=== PATIENT | male | born 1985 | race Two or more races ===

== ENCOUNTER 2017-05-14 13:18 | Emergency (ER) | payer MEDICAID ==
[~2017-05-14] VITALS: Ht 177.8 cm; Wt 57.2 kg
[2017-05-14 14:01] LABS: Urine RBC None Seen /hpf (0 - 3)
[2017-05-14 14:21] LABS: Basophils # (auto) 0 uL; Basophils % (auto) 0.8 % (0.0-2.0); CONDITION Y; DEFINITIVE SEE PRINTOUT; Eosinophils # (auto) 0.1 uL; Eosinophils % (auto) 1.8 % (0.0-7.0); Hemoglobin 16.8 g/dL (13.5-17.5); Lymphocytes # (auto) 1.5 uL; Lymphocytes % (auto) 37.5 % (10.0-50.0); Mean Corpuscular Hemoglobin 35.7 pg (28.0-32.0); Mean Corpuscular Hgb Conc. 34.2 g/dL (32.0-36.0); Mean Corpuscular Volume 104.3 fL (80.0-100.0); Mean Platelet Volume 10.4 fL (7.4-10.4); Monocytes # (auto) 0.3 uL; Monocytes % (auto) 6.8 % (0.0-12.0); Neutrophils # (auto) 2.1 uL; Neutrophils % (auto) 53.1 % (37.0-80.0); Platelet Count (auto) 210 10^3/uL (140-450); Red Cell Distribution Width 13.3 % (11.6-16.0); White Blood Cell 3.9 10^3/uL (4.4-10.8)
[2017-05-14 14:23] LABS: Albumin 4.4 g/dL (3.4-5.0); BUN/Creatinine Ratio 13.3; Calcium 9.3 mg/dL (8.5-10.1); Potassium 4.5 mmol/L (3.5-5.1)
[2017-05-14 14:26] LABS: Bilirubin, Total 0.7 mg/dL (0.2-1.0); Total Protein 7.8 g/dL (6.4-8.2)
[2017-05-14 14:27] LABS: Urine Bilirubin Negative (Negative); Urine Blood Negative /uL (Negative); Urine Color Yellow (Yellow); Urine Glucose Normal (Normal); Urine Ketone Negative (Negative); Urine Nitrite Negative (Negative); Urine Squamous Epithelial Cell FEW /hpf (<5); Urine Urobilinogen Normal (Negative); Urine pH 7.5 (5.0-8.0)
[2017-05-14] MEDS ORDERED: SODIUM CHLORIDE 0.9% 1,000 ML IV ONE (14:30)
[2017-05-14] MEDS ORDERED: KETOROLAC TROMETH 30 MG/ML 1ML VIAL IV ONE (14:30)
[2017-05-14 16:05] VITALS: BP 99/61
== END 2017-05-14 16:08 | disposition home or self-care (01) ==
LOC: ER 13:18
DX: B34.9 Viral infection, unspecified (principal)
CPT/HCPCS: 36415; 80053; 80307; 81001; 83735; 85025; 96361; 96374; 99284; J1885; J7030

== ENCOUNTER 2017-06-17 13:27 | Emergency (ER) | payer MEDICAID ==
[2017-06-17 14:45] VITALS: BP 122/71
[2017-06-17] MEDS ORDERED: KETOROLAC TROMETH 60MG/2ML VIAL IM ONE (15:30)
[2017-06-17] MEDS ORDERED: HYDROcodone-ACET 10/325MG TAB PO ONE (15:30)
== END 2017-06-17 16:01 | disposition home or self-care (01) ==
LOC: ER 13:27
DX: M54.16 Radiculopathy, lumbar region (principal); G89.29 Other chronic pain; M54.5 Low back pain
CPT/HCPCS: 72131; 96372; 99284; J1885

== ENCOUNTER 2017-06-29 11:56 | Inpatient (IN) | payer MEDICAID ==
[~2017-06-29] VITALS: Ht 180.3 cm; Wt 58.2 kg
[2017-06-29] MEDS ORDERED: SODIUM CHLORIDE 0.9% 1,000 ML IV ONE (13:15)
[2017-06-29] MEDS ORDERED: ONDANSETRON HCL 4 MG/2 ML VIAL IV ONE (13:15)
[2017-06-29] MEDS ORDERED: HYDROmorphone HCL 2 MG/ML VL IV ONE (13:15)
[2017-06-29 13:34] LABS: Eosinophils # (auto) 0.1 uL; Hemoglobin 15.5 g/dL (13.5-17.5); Neutrophils # (auto) 1.8 uL; White Blood Cell 3.9 10^3/uL (4.4-10.8)
[2017-06-29 13:36] LABS: Basophils # (auto) 0.1 uL; Basophils % (auto) 1.4 % (0.0-2.0); Hematocrit 44.9 % (41.0-53.0); Lymphocytes # (auto) 1.6 uL; Mean Corpuscular Hemoglobin 36.2 pg (28.0-32.0); Mean Corpuscular Hgb Conc. 34.4 g/dL (32.0-36.0); Mean Corpuscular Volume 105.3 fL (80.0-100.0); Mean Platelet Volume 9.6 fL (6.9-10.8); Monocytes # (auto) 0.4 uL; Monocytes % (auto) 9.8 % (0.0-12.0); Neutrophils % (auto) 46.8 % (37.0-80.0); Nucleated Red Blood Cells % 0.1 %; Platelet Count (auto) 135 10^3/uL (140-450); Red Cell Distribution Width 12.8 % (11.8-14.3)
[2017-06-29 14:01] LABS: Albumin 4.3 g/dL (3.4-5.0); BUN/Creatinine Ratio 18.2; Bilirubin, Total 0.6 mg/dL (0.2-1.0); Calcium 8.9 mg/dL (8.5-10.1); Potassium 3.8 mmol/L (3.5-5.1); Total Protein 7.5 g/dL (6.4-8.2)
[2017-06-29] MEDS ORDERED: GASTROGRAFIN 30 ML SOL ONE (14:30)
[2017-06-29] MEDS ORDERED: cefTRIAXone 1GM/50ML D5W 50 ML IV ONE ×2 (14:45→22:06)
[2017-06-29] MEDS ORDERED: IOHEXOL 300 MG/ML 100ML BOTTLE IJ ONE (15:38)
[2017-06-29 16:43] LABS: Urine RBC None Seen /hpf (0 - 3)
[2017-06-29 17:00] LABS: Urine Bilirubin Negative (Negative); Urine Blood Negative /uL (Negative); Urine Color Yellow (Yellow); Urine Glucose Normal (Normal); Urine Ketone Negative (Negative); Urine Nitrite Negative (Negative); Urine Squamous Epithelial Cell FEW /hpf (<5); Urine Urobilinogen Normal (Negative)
[2017-06-29] MEDS ORDERED: KETOROLAC TROMETH 30 MG/ML 1ML VIAL IV ONE (17:15)
[2017-06-29] MEDS: SODIUM CHLORIDE 0.9% 1,000 ML IV SCH (21:08)
[2017-06-29] MEDS ORDERED: TEMAZEPAM 15 MG CAP PO PRN (21:15)
[2017-06-29] MEDS ORDERED: PANTOPRAZOLE 40 MG/10 ML VIAL IV ONE (21:15)
[2017-06-29] MEDS ORDERED: ACETAMINOPHEN 325 MG TAB PO PRN (21:15)
[2017-06-29] MEDS: MORPHINE SULF INJ 2 MG/ML SYRINGE 1ML IV PRN (22:22)
[2017-06-29 23:12] VITALS: BP 123/77
[2017-06-29 23:16] VITALS: BP 123/77
[2017-06-30] MEDS: MORPHINE SULF INJ 2 MG/ML SYRINGE 1ML IV PRN ×3 (02:21→12:43)
[2017-06-30 05:51] LABS: Basophils # (auto) 0 uL; Basophils % (auto) 0.6 % (0.0-2.0); Eosinophils # (auto) 0.1 uL; Eosinophils % (auto) 2.2 % (0.0-7.0); Hematocrit 39.9 % (41.0-53.0); Lymphocytes # (auto) 1.8 uL; Lymphocytes % (auto) 35.7 % (10.0-50.0); Mean Corpuscular Hemoglobin 36.6 pg (28.0-32.0); Mean Corpuscular Hgb Conc. 35.1 g/dL (32.0-36.0); Mean Corpuscular Volume 104.2 fL (80.0-100.0); Mean Platelet Volume 10.2 fL (6.9-10.8); Monocytes # (auto) 0.4 uL; Monocytes % (auto) 7.4 % (0.0-12.0); Neutrophils # (auto) 2.7 uL; Neutrophils % (auto) 54.1 % (37.0-80.0); Nucleated Red Blood Cells % 0.1 %; Platelet Count (auto) 117 10^3/uL (140-450); Red Cell Distribution Width 12.7 % (11.8-14.3)
[2017-06-30 06:00] VITALS: BP 106/76
[2017-06-30 06:13] LABS: Albumin 3.6 g/dL (3.4-5.0); BUN/Creatinine Ratio 13.9; Bilirubin, Total 1.1 mg/dL (0.2-1.0); Calcium 8.1 mg/dL (8.5-10.1); Potassium 3.7 mmol/L (3.5-5.1); Total Protein 6.3 g/dL (6.4-8.2)
[2017-06-30] MEDS: SODIUM CHLORIDE 0.9% 1,000 ML IV SCH ×2 (08:23→17:08)
[2017-06-30] MEDS: ONDANSETRON HCL 4 MG/2 ML VIAL IV PRN ×2 (08:24→12:43)
[2017-06-30] MEDS ORDERED: HYDR-4663 PO (08:33)
[2017-06-30] MEDS ORDERED: MELO-86 PO (08:33)
[2017-06-30] MEDS ORDERED: DARU1TAB PO (08:33)
[2017-06-30] MEDS ORDERED: EMTR1TAB6 PO (08:33)
[2017-06-30 09:00] VITALS: BP 105/63
[2017-06-30] MEDS ORDERED: cefTRIAXone 1GM/50ML D5W 50 ML IV SCH (09:00)
[2017-06-30] MEDS ORDERED: PANTOPRAZOLE 40 MG/10 ML VIAL IV SCH (10:00)
[2017-06-30] MEDS ORDERED: PREZCOBIX PO SCH (10:00)
[2017-06-30] MEDS ORDERED: DESCOVY PO SCH (10:00)
[2017-06-30] MEDS ORDERED: TENOFOVIR ALAFENAMIDE PO SCH (10:00)
[2017-06-30] MEDS ORDERED: EMTRICITABINE PO SCH (10:00)
[2017-06-30] MEDS: HYDROcodone-ACET 5/325MG TAB PO PRN ×2 (10:36→14:56)
[2017-06-30 13:00] VITALS: BP 120/69
[2017-06-30 15:36] VITALS: BP 120/69
[2017-06-30 17:00] VITALS: BP 115/68
== END 2017-06-30 18:30 | disposition home or self-care (01) | DRG 282 ==
LOC: ER 11:56 → OVERFLOW 11:57 → WEST WING 22:50
PROVIDERS: ADMIT Nurse Practitioner; ATTEND Nurse Practitioner
DX: K85.90 Acute pancreatitis without necrosis or infection, unspecified (principal); F12.90 Cannabis use, unspecified, uncomplicated; G89.29 Other chronic pain; M54.9 Dorsalgia, unspecified
CPT/HCPCS: 36415; 74176; 74177; 80053; 81001; 82150; 83690; 85025; 96361; 96365; 96375; 99291; C9113; J0696; J1885; J2405

== ENCOUNTER 2017-07-04 10:00 | Inpatient (IN) | payer MEDICAID ==
[~2017-07-04] VITALS: Ht 180.3 cm; Wt 76.6 kg
[~2017-07-04 10:00] MED LIST: DARU1TAB PO; EMTR1TAB6 PO; HYDR-4663 PO; MELO-86 PO
[2017-07-04] MEDS ORDERED: SODIUM CHLORIDE 0.9% 1,000 ML IVB ONE (10:25)
[2017-07-04] MEDS ORDERED: ONDANSETRON HCL 4 MG/2 ML VIAL IV ONE ×2 (10:30→13:00)
[2017-07-04] MEDS ORDERED: HYDROmorphone HCL 2 MG/ML VL IV ONE ×2 (10:30→11:30)
[2017-07-04 11:20] LABS: Albumin 4.5 g/dL (3.4-5.0); BUN/Creatinine Ratio 17.2; Bilirubin, Total 0.6 mg/dL (0.2-1.0); Calcium 9.4 mg/dL (8.5-10.1); Potassium 3.9 mmol/L (3.5-5.1); Total Protein 7.9 g/dL (6.4-8.2)
[2017-07-04 11:26] LABS: Basophils # (auto) 0 uL; Basophils % (auto) 1.5 % (0.0-2.0); Eosinophils # (auto) 0.1 uL; Eosinophils % (auto) 3.6 % (0.0-7.0); Hematocrit 46.5 % (41.0-53.0); Hemoglobin 16.2 g/dL (13.5-17.5); Lymphocytes # (auto) 1.1 uL; Lymphocytes % (auto) 41.8 % (10.0-50.0); Mean Corpuscular Hemoglobin 36.3 pg (28.0-32.0); Mean Corpuscular Hgb Conc. 34.9 g/dL (32.0-36.0); Mean Platelet Volume 10.6 fL (6.9-10.8); Monocytes # (auto) 0.3 uL; Monocytes % (auto) 11.6 % (0.0-12.0); Neutrophils # (auto) 1.1 uL; Neutrophils % (auto) 41.5 % (37.0-80.0); Nucleated Red Blood Cells % 0.2 %; Platelet Count (auto) 144 10^3/uL (140-450); Red Cell Distribution Width 12.1 % (11.8-14.3); White Blood Cell 2.5 10^3/uL (4.4-10.8)
[2017-07-04] MEDS ORDERED: ACETAMINOPHEN 500 MG TAB PO PRN (13:15)
[2017-07-04] MEDS ORDERED: TEMAZEPAM 15 MG CAP PO PRN (13:15)
[2017-07-04] MEDS ORDERED: PROMETHAZINE HCL 25 MG/ML 1ML IV PRN (13:15)
[2017-07-04] MEDS ORDERED: LORazepam 0.5 MG TAB PO PRN (13:15)
[2017-07-04] MEDS ORDERED: HYDROcodone-ACET 5/325MG TAB PO PRN (13:15)
[2017-07-04] MEDS ORDERED: PANTOPRAZOLE 40 MG/10 ML VIAL IV ONE (13:15)
[2017-07-04 13:56] LABS: Urine Bilirubin Negative (Negative); Urine Blood Negative /uL (Negative); Urine Color Yellow (Yellow); Urine Glucose Normal (Normal); Urine Ketone Negative (Negative); Urine Mucus FEW (None Seen); Urine Nitrite Negative (Negative); Urine RBC <1 /hpf (0 - 3); Urine Urobilinogen Normal (Negative); Urine pH 5.5 (5.0-8.0)
[2017-07-04] MEDS: SODIUM CHLORIDE 0.9% 1,000 ML IV SCH ×2 (14:29→23:26)
[2017-07-04] MEDS: MORPHINE SULF INJ 2 MG/ML SYRINGE 1ML IV PRN ×3 (15:26→23:40)
[2017-07-04] MEDS: DARUNAVIR COBICISTAT PO SCH (18:20)
[2017-07-04 20:07] VITALS: BP 117/75
[2017-07-04 21:27] VITALS: BP 117/75
[2017-07-04] MEDS: PANTOPRAZOLE 40 MG/10 ML VIAL IV SCH (22:50)
[2017-07-05] VITALS (7 sets, daily range): BP systolic 95–112; BP diastolic 54–99
[2017-07-05] MEDS: MORPHINE SULF INJ 2 MG/ML SYRINGE 1ML IV PRN ×2 (05:43→12:08)
[2017-07-05 06:15] LABS: Albumin 3.9 g/dL (3.4-5.0); BUN/Creatinine Ratio 9.1; Calcium 8.7 mg/dL (8.5-10.1); Potassium 4.1 mmol/L (3.5-5.1)
[2017-07-05 06:19] LABS: Bilirubin, Total 0.9 mg/dL (0.2-1.0); Total Protein 6.8 g/dL (6.4-8.2)
[2017-07-05 07:29] LABS: Basophils # (auto) 0 uL; Eosinophils # (auto) 0.1 uL; Eosinophils % (auto) 3.5 % (0.0-7.0); Hemoglobin 15.1 g/dL (13.5-17.5); Monocytes # (auto) 0.4 uL; Red Cell Distribution Width 12.6 % (11.8-14.3); White Blood Cell 2.9 10^3/uL (4.4-10.8)
[2017-07-05 07:31] LABS: Basophils % (auto) 1.1 % (0.0-2.0); Hematocrit 43.5 % (41.0-53.0); Lymphocytes # (auto) 1.5 uL; Lymphocytes % (auto) 49.9 % (10.0-50.0); Mean Corpuscular Hemoglobin 36.4 pg (28.0-32.0); Mean Corpuscular Hgb Conc. 34.8 g/dL (32.0-36.0); Mean Corpuscular Volume 104.7 fL (80.0-100.0); Mean Platelet Volume 10.7 fL (6.9-10.8); Monocytes % (auto) 11.9 % (0.0-12.0); Neutrophils % (auto) 33.6 % (37.0-80.0); Nucleated Red Blood Cells % 0.1 %; Platelet Count (auto) 131 10^3/uL (140-450)
[2017-07-05] MEDS ORDERED: GASTROGRAFIN 120 ML SOL ONE ×2 (08:35→09:10)
[2017-07-05] MEDS ORDERED: EZ-GAS II GRANULES (RADIOLOGY USE) PO ONE (08:35)
[2017-07-05] MEDS: SODIUM CHLORIDE 0.9% 1,000 ML IV SCH (09:08)
[2017-07-05] MEDS ORDERED: EMTRICITABINE TENOFOVIR ALAFEN PO SCH (10:00)
[2017-07-05] MEDS ORDERED: PANTOPRAZOLE 40 MG/10 ML VIAL IV SCH (10:00)
[2017-07-05] MEDS ORDERED: HYDR-4663 PO (11:40)
[2017-07-05] MEDS ORDERED: OMEP20CA74 PO (12:02)
[2017-07-05] MEDS: SUCRALFATE 1 GM/10 ML ORAL SUSP PO SCH ×2 (12:07→17:14)
[2017-07-05] MEDS: PANTOPRAZOLE 40 MG/10 ML VIAL IV SCH (12:08)
[2017-07-05] MEDS: DARUNAVIR COBICISTAT PO SCH (12:08)
[2017-07-07] MEDS ORDERED: MET500T PO (13:00)
== END 2017-07-05 21:20 | disposition home or self-care (01) | DRG 282 ==
LOC: ER 10:00 → OVERFLOW 10:01 → CENTRAL 20:07
PROVIDERS: ADMIT Internal Medicine; ATTEND Hospitalist
DX: K85.90 Acute pancreatitis without necrosis or infection, unspecified (principal); G89.29 Other chronic pain; M54.9 Dorsalgia, unspecified; Z82.49 Family history of ischemic heart disease and other diseases of the circulatory system; Z83.3 Family history of diabetes mellitus; Z83.49 Family history of other endocrine, nutritional and metabolic diseases
CPT/HCPCS: 36415; 71101; 74247; 76700; 80053; 80307; 81001; 82150; 82378; 83690; 85025; 85652; 86141; 87081; 87493; 96361; 96374; 96375; 96376; C9113; J2405

== ENCOUNTER 2017-07-19 12:26 | Emergency (ER) | payer MEDICAID ==
[~2017-07-19 12:26] MED LIST changes: -HYDR-4663 PO; +HYDR-4683 PO; -MELO-86 PO; +MET500T PO; +OMEP20CA74 PO
[2017-07-19 13:29] LABS: Basophils # (auto) 0 uL; Basophils % (auto) 0.7 % (0.0-2.0); Eosinophils # (auto) 0 uL; Eosinophils % (auto) 0.6 % (0.0-7.0); Hematocrit 47.4 % (41.0-53.0); Hemoglobin 16.3 g/dL (13.5-17.5); Lymphocytes # (auto) 1.3 uL; Lymphocytes % (auto) 33.7 % (10.0-50.0); Mean Corpuscular Hemoglobin 35.5 pg (28.0-32.0); Mean Corpuscular Hgb Conc. 34.3 g/dL (32.0-36.0); Mean Corpuscular Volume 103.3 fL (80.0-100.0); Mean Platelet Volume 9.7 fL (6.9-10.8); Monocytes # (auto) 0.3 uL; Monocytes % (auto) 7.5 % (0.0-12.0); Neutrophils # (auto) 2.2 uL; Neutrophils % (auto) 57.5 % (37.0-80.0); Nucleated Red Blood Cells % 0.1 %; Platelet Count (auto) 154 10^3/uL (140-450); Red Cell Distribution Width 12.6 % (11.8-14.3); White Blood Cell 3.8 10^3/uL (4.4-10.8)
[2017-07-19 13:46] LABS: Albumin 4.6 g/dL (3.4-5.0); BUN/Creatinine Ratio 16.3; Bilirubin, Total 0.6 mg/dL (0.2-1.0); Calcium 9.4 mg/dL (8.5-10.1); Potassium 3.5 mmol/L (3.5-5.1); Total Protein 8.3 g/dL (6.4-8.2)
[2017-07-19 16:19] VITALS: BP 123/76
[2017-07-19] MEDS ORDERED: KETOROLAC TROMETH 60MG/2ML VIAL IM ONE (17:00)
== END 2017-07-19 18:19 | disposition home or self-care (01) ==
LOC: ER 12:26
DX: R53.1 Weakness (principal); B20 Human immunodeficiency virus [HIV] disease
CPT/HCPCS: 36415; 71020; 80053; 85025; 96372; 99285; J1885

== ENCOUNTER 2017-12-22 14:21 | Emergency (ER) | payer MEDICAID ==
[~2017-12-22] VITALS: Ht 177.8 cm; Wt 68.0 kg
[2017-12-22 14:47] VITALS: BP 114/67
[2017-12-22 15:13] LABS: Basophils # (auto) 0 uL; Basophils % (auto) 0.6 % (0.0-2.0); Eosinophils # (auto) 0 uL; Eosinophils % (auto) 0.5 % (0.0-7.0); Hematocrit 48.9 % (41.0-53.0); Hemoglobin 17.1 g/dL (13.5-17.5); Lymphocytes # (auto) 1.3 uL; Lymphocytes % (auto) 23.1 % (10.0-50.0); Mean Corpuscular Volume 102.9 fL (80.0-100.0); Monocytes # (auto) 0.3 uL; Monocytes % (auto) 6.2 % (0.0-12.0); Neutrophils # (auto) 3.8 uL; Neutrophils % (auto) 69.6 % (37.0-80.0); Nucleated Red Blood Cells % 0.1 %; Platelet Count (auto) 203 10^3/uL (140-450); Red Blood Cells 4.75 10^6/uL (4.5-5.90); Red Cell Distribution Width 13.5 % (11.8-14.3); White Blood Cell 5.5 10^3/uL (4.4-10.8)
[2017-12-22 15:32] LABS: Albumin 4.7 g/dL (3.4-5.0); BUN/Creatinine Ratio 12.6; Bilirubin, Total 0.7 mg/dL (0.2-1.0); Calcium 9.1 mg/dL (8.5-10.1); Potassium 3.9 mmol/L (3.5-5.1); Total Protein 8.5 g/dL (6.4-8.2)
== END 2017-12-23 00:59 | disposition left against medical advice (07) ==
LOC: ER 14:21
DX: R53.1 Weakness (principal); Z53.21 Procedure and treatment not carried out due to patient leaving prior to being seen by health care provider
CPT/HCPCS: 36415; 71046; 80053; 85025

== ENCOUNTER 2018-01-14 17:35 | Inpatient (IN) | payer MEDICAID ==
[~2018-01-14] VITALS: Ht 177.8 cm; Wt 60.6 kg
[2018-01-14 18:31] LABS: Eosinophils # (auto) 0.1 uL; Hemoglobin 15.9 g/dL (13.5-17.5); Lymphocytes # (auto) 1.1 uL; Neutrophils # (auto) 2.1 uL
[2018-01-14 18:33] LABS: Basophils # (auto) 0.1 uL; Basophils % (auto) 1.5 % (0.0-2.0); Eosinophils % (auto) 2.2 % (0.0-7.0); Hematocrit 45.9 % (41.0-53.0); Lymphocytes % (auto) 31.1 % (10.0-50.0); Mean Corpuscular Hemoglobin 36.3 pg (28.0-32.0); Mean Corpuscular Hgb Conc. 34.7 g/dL (32.0-36.0); Mean Corpuscular Volume 104.6 fL (80.0-100.0); Monocytes # (auto) 0.3 uL; Monocytes % (auto) 7.4 % (0.0-12.0); Neutrophils % (auto) 57.8 % (37.0-80.0); Nucleated Red Blood Cells % 0.2 %; Platelet Count (auto) 121 10^3/uL (140-450); Red Blood Cells 4.38 10^6/uL (4.5-5.90); Red Cell Distribution Width 13.3 % (11.8-14.3); White Blood Cell 3.6 10^3/uL (4.4-10.8)
[2018-01-14 18:49] LABS: Albumin 4.3 g/dL (3.4-5.0); BUN/Creatinine Ratio 13.9; Calcium 8.9 mg/dL (8.5-10.1); Potassium 3.9 mmol/L (3.5-5.1)
[2018-01-14 18:51] LABS: Bilirubin, Total 0.7 mg/dL (0.2-1.0); Total Protein 7.6 g/dL (6.4-8.2)
[2018-01-14] MEDS ORDERED: SODIUM CHLORIDE 0.9% 500 ML IVB ONE (18:58)
[2018-01-14] MEDS ORDERED: ONDANSETRON HCL 4 MG/2 ML VIAL IV ONE (19:00)
[2018-01-14] MEDS ORDERED: MORPHINE SULFATE 8mg/ml INJ SDV IV ONE (19:00)
[2018-01-14] MEDS: SODIUM CHLORIDE 0.9% 1,000 ML IV SCH (20:44)
[2018-01-14] MEDS ORDERED: cefTRIAXone 1GM/10ml IVPUSH 10 ML IV ONE (20:45)
[2018-01-14] MEDS ORDERED: ACETAMINOPHEN 325 MG TAB PO PRN (20:45)
[2018-01-14] MEDS ORDERED: DOCUSATE SOD 100 MG CAP PO PRN (20:45)
[2018-01-14] MEDS ORDERED: TEMAZEPAM 15 MG CAP PO PRN (20:45)
[2018-01-14 22:40] VITALS: BP 121/83
[2018-01-14] MEDS: PANTOPRAZOLE 40 MG TAB PO SCH (23:08)
[2018-01-14] MEDS: metroNIDAZOLE 500MG/100ML 100 ML IV SCH (23:08)
[2018-01-14] MEDS: MORPHINE SULFATE 8mg/ml INJ SDV IV PRN (23:17)
[2018-01-14] MEDS ORDERED: ELVI1TAB4 PO (23:31)
[2018-01-14 23:41] VITALS: BP 121/83
[2018-01-15] MEDS: MORPHINE SULFATE 8mg/ml INJ SDV IV PRN ×4 (04:15→22:08)
[2018-01-15] MEDS: ONDANSETRON HCL 4 MG/2 ML VIAL IV PRN ×2 (04:40→08:39)
[2018-01-15 05:00] VITALS: BP 107/80
[2018-01-15] MEDS: metroNIDAZOLE 500MG/100ML 100 ML IV SCH ×3 (05:41→21:08)
[2018-01-15 06:00] LABS: Eosinophils # (auto) 0.1 uL; Lymphocytes # (auto) 1.7 uL; Monocytes # (auto) 0.3 uL; Red Cell Distribution Width 13.4 % (11.8-14.3); White Blood Cell 3.9 10^3/uL (4.4-10.8)
[2018-01-15 06:06] LABS: Basophils # (auto) 0.1 uL; Basophils % (auto) 1.6 % (0.0-2.0); Eosinophils % (auto) 3.5 % (0.0-7.0); Hematocrit 43.9 % (41.0-53.0); Hemoglobin 14.9 g/dL (13.5-17.5); Mean Corpuscular Hemoglobin 35.7 pg (28.0-32.0); Monocytes % (auto) 8.8 % (0.0-12.0); Neutrophils # (auto) 1.6 uL; Neutrophils % (auto) 42.1 % (37.0-80.0); Nucleated Red Blood Cells % 0.1 %; Platelet Count (auto) 112 10^3/uL (140-450); Red Blood Cells 4.19 10^6/uL (4.5-5.90)
[2018-01-15 06:09] LABS: Albumin 3.8 g/dL (3.4-5.0); BUN/Creatinine Ratio 11.4; Calcium 8.2 mg/dL (8.5-10.1); Potassium 3.6 mmol/L (3.5-5.1)
[2018-01-15 06:18] LABS: Bilirubin, Total 0.9 mg/dL (0.2-1.0); Total Protein 6.5 g/dL (6.4-8.2)
[2018-01-15 08:16] VITALS: BP 110/70
[2018-01-15] MEDS: ENOXAPARIN SOD 40 MG/0.4 ML SYRINGE SC SCH (08:39)
[2018-01-15] MEDS: PANTOPRAZOLE 40 MG TAB PO SCH ×2 (08:39→21:08)
[2018-01-15] MEDS: SODIUM CHLORIDE 0.9% 1,000 ML IV SCH ×2 (08:39→21:44)
[2018-01-15] MEDS: cefTRIAXone 1GM/10ml IVPUSH 10 ML IV SCH (08:39)
[2018-01-15 11:09] LABS: Urine Bacteria NONE SEEN /hpf (None Seen); Urine Blood Negative /uL (Negative); Urine Specific Gravity 1.016 (1.001-1.035); Urine WBC <1 /hpf (0 - 3)
[2018-01-15] MEDS ORDERED: PROMETHAZINE HCL 25 MG/ML 1ML IM ONE (12:15)
[2018-01-15] MEDS ORDERED: PROMETHAZINE HCL 25 MG/ML 1ML ONE (12:26)
[2018-01-15 12:43] VITALS: BP 126/78
[2018-01-15 16:18] VITALS: BP 103/61
[2018-01-15 21:39] VITALS: BP 113/72
[2018-01-15] MEDS: PROMETHAZINE HCL 25 MG/ML 1ML IV PRN (22:14)
[2018-01-16 04:47] VITALS: BP 105/74
[2018-01-16] MEDS: metroNIDAZOLE 500MG/100ML 100 ML IV SCH ×3 (05:46→23:13)
[2018-01-16 09:00] VITALS: BP 108/67
[2018-01-16] MEDS: MORPHINE SULFATE 8mg/ml INJ SDV IV PRN (09:03)
[2018-01-16] MEDS: PROMETHAZINE HCL 25 MG/ML 1ML IV PRN ×3 (09:03→23:28)
[2018-01-16] MEDS: cefTRIAXone 1GM/10ml IVPUSH 10 ML IV SCH (09:37)
[2018-01-16] MEDS: PANTOPRAZOLE 40 MG TAB PO SCH ×2 (09:37→23:28)
[2018-01-16] MEDS: ENOXAPARIN SOD 40 MG/0.4 ML SYRINGE SC SCH (09:37)
[2018-01-16] MEDS: SODIUM CHLORIDE 0.9% 1,000 ML IV SCH ×2 (10:14→22:44)
[2018-01-16] MEDS: HYDROmorphone HCL 2 MG/ML VL IV PRN ×4 (11:20→23:09)
[2018-01-16] MEDS ORDERED: GOLYTELY 4L KIT PO ONE (11:30)
[2018-01-16 13:00] VITALS: BP 123/80
[2018-01-16 17:00] VITALS: BP 112/78
[2018-01-16 21:31] VITALS: BP 103/70
[2018-01-17 04:52] VITALS: BP 108/64
[2018-01-17] MEDS ORDERED: GOLYTELY 4L KIT PO ONE (06:00)
[2018-01-17] MEDS: metroNIDAZOLE 500MG/100ML 100 ML IV SCH ×3 (07:10→21:48)
[2018-01-17] MEDS: HYDROmorphone HCL 2 MG/ML VL IV PRN ×5 (07:23→22:48)
[2018-01-17 08:19] VITALS: BP 107/67
[2018-01-17] MEDS ORDERED: diphenhdrAMINE HCL 50 MG/1 ML VL ONE (10:22)
[2018-01-17 10:34] LABS: Basophils # (auto) 0 uL; Eosinophils # (auto) 0 uL; Lymphocytes # (auto) 0.6 uL; Monocytes # (auto) 0.3 uL
[2018-01-17 10:36] LABS: Basophils % (auto) 0.7 % (0.0-2.0); Hemoglobin 15.6 g/dL (13.5-17.5); Lymphocytes % (auto) 10.2 % (10.0-50.0); Mean Corpuscular Hemoglobin 35.8 pg (28.0-32.0); Mean Corpuscular Hgb Conc. 34.6 g/dL (32.0-36.0); Monocytes % (auto) 4.6 % (0.0-12.0); Neutrophils # (auto) 4.9 uL; Neutrophils % (auto) 84.5 % (37.0-80.0); Platelet Count (auto) 121 10^3/uL (140-450); Red Blood Cells 4.35 10^6/uL (4.5-5.90); White Blood Cell 5.8 10^3/uL (4.4-10.8)
[2018-01-17 10:40] LABS: Mean Corpuscular Volume 103.6 fL (80.0-100.0)
[2018-01-17 11:02] LABS: Albumin 4.2 g/dL (3.4-5.0); BUN/Creatinine Ratio 8.9; Calcium 8.7 mg/dL (8.5-10.1); Potassium 3.9 mmol/L (3.5-5.1); Total Protein 7.1 g/dL (6.4-8.2)
[2018-01-17 11:04] LABS: INR 1.15 (0.9-1.15); Partial Thromboplastin Time 29.7 sec (22.64-33.71); Prothrombin Time 12.6 sec (9.37-12.3)
[2018-01-17] MEDS: SODIUM CHLORIDE 0.9% 1,000 ML IV SCH ×2 (11:14→23:44)
[2018-01-17] MEDS: MIDAZOLAM HCL 5 MG/ML-1ML VIAL ONE ×2 (11:47→11:51)
[2018-01-17] MEDS: fentaNYL CITRATE 100 MCG/2 ML VL ONE ×2 (11:47→11:51)
[2018-01-17] MEDS ORDERED: fentaNYL CITRATE 100 MCG/2 ML VL ONE (11:50)
[2018-01-17] MEDS ORDERED: MIDAZOLAM HCL 5 MG/ML-1ML VIAL ONE (11:50)
[2018-01-17 12:53] VITALS: BP 106/59
[2018-01-17] MEDS: cefTRIAXone 1GM/10ml IVPUSH 10 ML IV SCH (13:18)
[2018-01-17] MEDS: ENOXAPARIN SOD 40 MG/0.4 ML SYRINGE SC SCH (13:19)
[2018-01-17] MEDS: PANTOPRAZOLE 40 MG TAB PO SCH ×2 (13:19→21:47)
[2018-01-17] MEDS: PROMETHAZINE HCL 25 MG/ML 1ML IV PRN ×2 (13:24→17:42)
[2018-01-17] MEDS: HYDROcodone-ACET 5/325MG TAB PO PRN ×2 (13:25→18:43)
[2018-01-17 17:05] VITALS: BP 123/76
[2018-01-17 21:43] VITALS: BP 105/60
[2018-01-18 04:51] VITALS: BP 112/70
[2018-01-18] MEDS: metroNIDAZOLE 500MG/100ML 100 ML IV SCH (06:00)
[2018-01-18] MEDS: HYDROmorphone HCL 2 MG/ML VL IV PRN ×3 (07:21→14:03)
[2018-01-18 09:00] VITALS: BP 108/65
[2018-01-18] MEDS: ENOXAPARIN SOD 40 MG/0.4 ML SYRINGE SC SCH (10:00)
[2018-01-18] MEDS: PANTOPRAZOLE 40 MG TAB PO SCH (10:13)
[2018-01-18] MEDS: cefTRIAXone 1GM/10ml IVPUSH 10 ML IV SCH (10:13)
[2018-01-18 13:00] VITALS: BP 113/70
[2018-01-18] MEDS ORDERED: LEVO500T21 PO (13:08)
== END 2018-01-18 14:10 | disposition home or self-care (01) | DRG 249 ==
LOC: ER 17:37 → OVERFLOW 17:38 → EAST 22:30
PROVIDERS: ADMIT Nurse Practitioner; ATTEND Internal Medicine
PROC: 0DBP8ZX Excision of Rectum, Via Natural or Artificial Opening Endoscopic, Diagnostic (ICD-10-PCS; principal; 2018-01-17 11:44)
DX: K52.9 Noninfective gastroenteritis and colitis, unspecified (principal); D70.9 Neutropenia, unspecified; I10 Essential (primary) hypertension; G47.00 Insomnia, unspecified; K59.00 Constipation, unspecified; K62.89 Other specified diseases of anus and rectum; Z83.49 Family history of other endocrine, nutritional and metabolic diseases; Z79.899 Other long term (current) drug therapy
CPT/HCPCS: 36415; 45380; 74176; 80053; 81001; 82150; 83690; 85025; 85610; 85730; 87045; 94761; 96361; 96374; 96375; J2250; J2270; J2405; J3490

== ENCOUNTER 2018-01-23 18:30 | Emergency (ER) | payer MEDICAID ==
[~2018-01-23] VITALS: Ht 177.8 cm; Wt 57.6 kg
[~2018-01-23 18:30] MED LIST changes: -DARU1TAB PO; +ELVI1TAB4 PO; -EMTR1TAB6 PO; +LEVO500T21 PO; -MET500T PO; -OMEP20CA74 PO
[2018-01-24 04:40] VITALS: BP 117/74
[2018-01-24 05:24] LABS: Eosinophils # (auto) 0 uL; Hemoglobin 16.4 g/dL (13.5-17.5); Neutrophils # (auto) 2.2 uL; Nucleated Red Blood Cells % 0.1 %
[2018-01-24 05:26] LABS: Basophils # (auto) 0 uL; Basophils % (auto) 0.7 % (0.0-2.0); Eosinophils % (auto) 1.1 % (0.0-7.0); Hematocrit 46.8 % (41.0-53.0); Lymphocytes # (auto) 1.4 uL; Lymphocytes % (auto) 34.5 % (10.0-50.0); Mean Corpuscular Hemoglobin 36.2 pg (28.0-32.0); Mean Corpuscular Volume 103.4 fL (80.0-100.0); Monocytes # (auto) 0.4 uL; Neutrophils % (auto) 54.7 % (37.0-80.0); Platelet Count (auto) 140 10^3/uL (140-450); Red Blood Cells 4.53 10^6/uL (4.5-5.90); Red Cell Distribution Width 13.2 % (11.8-14.3); White Blood Cell 4.1 10^3/uL (4.4-10.8)
[2018-01-24 05:28] LABS: Albumin 4.4 g/dL (3.4-5.0); BUN/Creatinine Ratio 17.3; Calcium 9.2 mg/dL (8.5-10.1); Magnesium 2.3 mg/dL (1.6-2.6); Potassium 3.7 mmol/L (3.5-5.1)
[2018-01-24] MEDS ORDERED: KETOROLAC TROMETH 60MG/2ML VIAL IM ONE (05:30)
[2018-01-24 05:31] LABS: Bilirubin, Total 0.7 mg/dL (0.2-1.0); Total Protein 7.8 g/dL (6.4-8.2)
[2018-01-24] MEDS ORDERED: ONDANSETRON HCL 4 MG/2 ML VIAL IV ONE (06:00)
[2018-01-24] MEDS ORDERED: NALBUPHINE HCL 10 MG/1ml INJECTION IV ONE (06:00)
== END 2018-01-24 06:05 | disposition home or self-care (01) ==
LOC: ER 18:30
DX: K52.9 Noninfective gastroenteritis and colitis, unspecified (principal); K59.00 Constipation, unspecified; F12.10 Cannabis abuse, uncomplicated
CPT/HCPCS: 36415; 74018; 80053; 82150; 83690; 83735; 85025; 96374; 96375; 99285; J2300; J2405

== ENCOUNTER 2018-01-24 06:48 | Emergency (ER) | payer MEDICAID ==
[~2018-01-24] VITALS: Ht 177.8 cm; Wt 57.6 kg
[2018-01-24] MEDS ORDERED: SODIUM CHLORIDE 0.9% 1,000 ML IV ONE ×2 (08:39)
[2018-01-24] MEDS ORDERED: ONDANSETRON HCL 4 MG/2 ML VIAL IV ONE (08:45)
[2018-01-24] MEDS ORDERED: MORPHINE SULFATE 8mg/ml INJ SDV IV ONE (08:45)
[2018-01-24 10:17] VITALS: BP 117/65
== END 2018-01-24 10:58 | disposition home or self-care (01) ==
LOC: ER 06:53
DX: R10.13 Epigastric pain (principal); Z88.6 Allergy status to analgesic agent
CPT/HCPCS: 74176; 96361; 96374; 96375; 99285; J2270; J2405

== ENCOUNTER 2018-03-09 12:03 | Emergency (ER) | payer MEDICAID ==
[~2018-03-09] VITALS: Ht 177.8 cm; Wt 57.2 kg
[2018-03-09] MEDS ORDERED: SODIUM CHLORIDE 0.9% 1,000 ML IV ONE (12:14)
[2018-03-09] MEDS ORDERED: SODIUM CHLORIDE 0.9% 1,000 ML IVB ONE (12:14)
[2018-03-09] MEDS ORDERED: ONDANSETRON HCL 4 MG/2 ML VIAL IV ONE (12:15)
[2018-03-09] MEDS ORDERED: NALBUPHINE HCL 10 MG/1ml INJECTION IV ONE (12:15)
[2018-03-09 13:03] LABS: Basophils # (auto) 0 uL; Eosinophils # (auto) 0 uL; Hemoglobin 15.3 g/dL (13.5-17.5); Monocytes # (auto) 0.3 uL; Monocytes % (auto) 7.4 % (0.0-12.0); Platelet Count (auto) 128 10^3/uL (140-450); Red Cell Distribution Width 12.5 % (11.8-14.3); White Blood Cell 3.5 10^3/uL (4.4-10.8)
[2018-03-09 13:05] LABS: Basophils % (auto) 0.7 % (0.0-2.0); Eosinophils % (auto) 0.6 % (0.0-7.0); Hematocrit 44.9 % (41.0-53.0); Lymphocytes % (auto) 28.4 % (10.0-50.0); Mean Corpuscular Hemoglobin 34.8 pg (28.0-32.0); Mean Corpuscular Volume 102.4 fL (80.0-100.0); Neutrophils # (auto) 2.2 uL; Neutrophils % (auto) 62.9 % (37.0-80.0); Red Blood Cells 4.39 10^6/uL (4.5-5.90)
[2018-03-09 13:22] LABS: Alanine Aminotransferase 18 U/L (16-61); Albumin 4.1 g/dL (3.4-5.0); Amylase 108 U/L (25-115); Anion Gap 7 (5-15); Aspartate Aminotransferase 12 U/L (15-37); Blood Urea Nitrogen 12 mg/dL (7-18); Calcium 8.9 mg/dL (8.5-10.1); Carbon Dioxide 25 mmol/L (21-32); Chloride 107 mmol/L (98-107); GFR African American 133 mL/min; GFR Non-African American 110 mL/min; Glucose 88 mg/dL (74-106); Lipase 125 U/L (73-393); Potassium 3.9 mmol/L (3.5-5.1); Sodium 139 mmol/L (136-145)
[2018-03-09 13:27] LABS: Alkaline Phosphatase 41 U/L (45-117); Bilirubin, Total 0.9 mg/dL (0.2-1.0)
[2018-03-09 15:58] VITALS: BP 108/69
== END 2018-03-09 15:57 | disposition home or self-care (01) ==
LOC: ER 12:03
DX: R10.9 Unspecified abdominal pain (principal); R11.2 Nausea with vomiting, unspecified
CPT/HCPCS: 36415; 74176; 80053; 82150; 83690; 84484; 85025; 96361; 96374; 96375; 99285; J2300; J2405; J7030

== ENCOUNTER 2018-03-11 10:22 | Emergency (ER) | payer MEDICAID ==
[~2018-03-11] VITALS: Ht 177.8 cm; Wt 57.6 kg
[2018-03-11 10:47] VITALS: BP 104/66
[2018-03-11 11:17] LABS: Basophils # (auto) 0 uL; Eosinophils # (auto) 0 uL; Hemoglobin 15.8 g/dL (13.5-17.5); Lymphocytes # (auto) 0.8 uL; Monocytes # (auto) 0.2 uL; Neutrophils # (auto) 1.2 uL; Platelet Count (auto) 133 10^3/uL (140-450); White Blood Cell 2.3 10^3/uL (4.4-10.8)
[2018-03-11 11:19] LABS: Basophils % (auto) 0.8 % (0.0-2.0); Eosinophils % (auto) 1.2 % (0.0-7.0); Hematocrit 46.1 % (41.0-53.0); Lymphocytes % (auto) 35.7 % (10.0-50.0); Mean Corpuscular Hemoglobin 35.2 pg (28.0-32.0); Mean Corpuscular Hgb Conc. 34.3 g/dL (32.0-36.0); Mean Corpuscular Volume 102.6 fL (80.0-100.0); Monocytes % (auto) 7.6 % (0.0-12.0); Neutrophils % (auto) 54.7 % (37.0-80.0); Nucleated Red Blood Cells % 0.1 %; Red Blood Cells 4.49 10^6/uL (4.5-5.90); Red Cell Distribution Width 12.6 % (11.8-14.3)
[2018-03-11 11:40] LABS: Albumin 4.4 g/dL (3.4-5.0); BUN/Creatinine Ratio 12.2; Bilirubin, Total 0.6 mg/dL (0.2-1.0); Calcium 8.8 mg/dL (8.5-10.1); Potassium 3.9 mmol/L (3.5-5.1); Total Protein 7.5 g/dL (6.4-8.2)
== END 2018-03-11 14:52 | disposition home or self-care (01) ==
LOC: ER 10:24
DX: R10.9 Unspecified abdominal pain (principal); D69.6 Thrombocytopenia, unspecified; F17.210 Nicotine dependence, cigarettes, uncomplicated; F12.10 Cannabis abuse, uncomplicated
CPT/HCPCS: 36415; 80053; 85025

== ENCOUNTER 2018-05-10 18:15 | Emergency (ER) | payer MEDICAID ==
[~2018-05-10] VITALS: Ht 177.8 cm; Wt 68.0 kg
[~2018-05-10 18:15] MED LIST changes: +EMTR1TAB2 PO; -LEVO500T21 PO; +PROM25TA5 PO
[2018-05-10 18:22] VITALS: BP 98/65
== END 2018-05-10 21:17 | disposition home or self-care (01) ==
LOC: ER 18:15
DX: M54.5 Low back pain (principal); M62.830 Muscle spasm of back; F17.210 Nicotine dependence, cigarettes, uncomplicated
CPT/HCPCS: 72070; 72100

== ENCOUNTER 2018-05-15 05:48 | Observation (INO) | payer MEDICAID ==
[~2018-05-15] VITALS: Ht 177.8 cm; Wt 58.1 kg
[2018-05-15] MEDS ORDERED: SODIUM CHLORIDE 0.9% 1,000 ML IV ONE ×2 (07:21)
[2018-05-15] MEDS ORDERED: NALBUPHINE HCL 10 MG/1ml INJECTION IV ONE (07:30)
[2018-05-15] MEDS ORDERED: ONDANSETRON HCL 4 MG/2 ML VIAL IV ONE (07:30)
[2018-05-15 07:52] LABS: Basophils # (auto) 0 uL; Eosinophils # (auto) 0 uL; Hemoglobin 16.7 g/dL (13.5-17.5); Lymphocytes # (auto) 1.3 uL; Monocytes # (auto) 0.3 uL; Nucleated Red Blood Cells % 0.1 %; Platelet Count (auto) 156 10^3/uL (140-450)
[2018-05-15 07:55] LABS: Basophils % (auto) 1.1 % (0.0-2.0); Eosinophils % (auto) 1.4 % (0.0-7.0); Hematocrit 49.2 % (41.0-53.0); Lymphocytes % (auto) 38.2 % (10.0-50.0); Mean Corpuscular Hemoglobin 34.8 pg (28.0-32.0); Mean Corpuscular Hgb Conc. 33.8 g/dL (32.0-36.0); Monocytes % (auto) 7.7 % (0.0-12.0); Neutrophils # (auto) 1.8 uL; Neutrophils % (auto) 51.6 % (37.0-80.0); Red Blood Cells 4.78 10^6/uL (4.5-5.90); Red Cell Distribution Width 14.2 % (11.8-14.3); White Blood Cell 3.5 10^3/uL (4.4-10.8)
[2018-05-15 08:31] LABS: Alanine Aminotransferase 30 U/L (16-61); Albumin 4.9 g/dL (3.4-5.0); Alkaline Phosphatase 67 U/L (45-117); Amylase 140 U/L (25-115); Anion Gap 8 (5-15); Aspartate Aminotransferase 19 U/L (15-37); BUN/Creatinine Ratio 9.3; Bilirubin, Total 0.5 mg/dL (0.2-1.0); Blood Urea Nitrogen 8 mg/dL (7-18); Calcium 9.1 mg/dL (8.5-10.1); Carbon Dioxide 27 mmol/L (21-32); Chloride 103 mmol/L (98-107); GFR African American 133 mL/min; GFR Non-African American 110 mL/min; Glucose 89 mg/dL (74-106); Lipase 193 U/L (73-393); Potassium 3.9 mmol/L (3.5-5.1); Sodium 138 mmol/L (136-145); Total Protein 8.9 g/dL (6.4-8.2)
[2018-05-15 09:24] LABS: Urine Bacteria NONE SEEN /hpf (None Seen); Urine Blood Negative /uL (Negative); Urine Specific Gravity 1.006 (1.001-1.035); Urine WBC <1 /hpf (0 - 3)
[2018-05-15 09:58] VITALS: BP 113/77
== END 2018-05-15 10:25 | disposition home or self-care (01) | DRG 251 ==
LOC: ER 05:49 → OVERFLOW 05:50 → ER 10:25
PROVIDERS: ADMIT Emergency Medicine; ATTEND Emergency Medicine
DX: R10.9 Unspecified abdominal pain (principal)
CPT/HCPCS: 36415; 74176; 80053; 81001; 82150; 83690; 84484; 85025; 96361; 96374; 96375; 99285; G0378; J2300; J2405; J7030

== ENCOUNTER 2018-08-08 02:56 | Inpatient (IN) | payer MEDICAID ==
[~2018-08-08] VITALS: Ht 180.3 cm; Wt 131.2 kg
[2018-08-08 04:30] LABS: Basophils # (auto) 0 uL; Eosinophils # (auto) 0 uL; Mean Corpuscular Hgb Conc. 34.8 g/dL (32.0-36.0); Mean Corpuscular Volume 104.6 fL (80.0-100.0); Monocytes # (auto) 0.3 uL; Neutrophils # (auto) 1.5 uL; Nucleated Red Blood Cells % 0.1 %; White Blood Cell 3.2 10^3/uL (4.4-10.8)
[2018-08-08 04:32] LABS: Eosinophils % (auto) 1.6 % (0.0-7.0); Hematocrit 44.1 % (41.0-53.0); Hemoglobin 15.3 g/dL (13.5-17.5); Lymphocytes # (auto) 1.3 uL; Lymphocytes % (auto) 40.3 % (10.0-50.0); Mean Corpuscular Hemoglobin 36.4 pg (28.0-32.0); Monocytes % (auto) 9.7 % (0.0-12.0); Neutrophils % (auto) 47.4 % (37.0-80.0); Platelet Count (auto) 131 10^3/uL (140-450); Red Blood Cells 4.22 10^6/uL (4.5-5.90); Red Cell Distribution Width 13.2 % (11.8-14.3)
[2018-08-08 04:49] LABS: Albumin 4.1 g/dL (3.4-5.0); BUN/Creatinine Ratio 17.2; Calcium 8.5 mg/dL (8.5-10.1); Magnesium 2.3 mg/dL (1.6-2.6); Potassium 3.9 mmol/L (3.5-5.1)
[2018-08-08 04:51] LABS: Bilirubin, Total 0.9 mg/dL (0.2-1.0); Total Protein 7.1 g/dL (6.4-8.2)
[2018-08-08] MEDS ORDERED: SODIUM CHLORIDE 0.9% 1,000 ML IV ONE (06:53)
[2018-08-08] MEDS ORDERED: MORPHINE SULFATE 4 MG/ML SYR/VIAL IV ONE (07:00)
[2018-08-08] MEDS ORDERED: ONDANSETRON HCL 4 MG/2 ML VIAL IV ONE (07:00)
[2018-08-08] MEDS ORDERED: PIPERACILLIN-TAZOB 3.375GM 100 ML IV ONE (07:00)
[2018-08-08] MEDS ORDERED: LORazepam 2MG/ML-1ML VIAL IV PRN (09:00)
[2018-08-08] MEDS ORDERED: MORPHINE SULFATE 4 MG/ML SYR/VIAL IV PRN ×2 (09:00)
[2018-08-08] MEDS ORDERED: DEXTROSE (50%) 50ML SYRG IV PRN (09:00)
[2018-08-08] MEDS ORDERED: NITROGLYCERIN 0.4 MG SL TAB SL PRN (09:00)
[2018-08-08] MEDS: cefTRIAXone 1GM/50ML D5W 50 ML IV SCH (09:17)
[2018-08-08] MEDS: SODIUM CHLORIDE 0.9% 1,000 ML IV SCH ×3 (09:17→22:14)
[2018-08-08] MEDS ORDERED: PANTOPRAZOLE 40 MG/10 ML VIAL IV SCH (10:00)
[2018-08-08] MEDS: metroNIDAZOLE 500MG/100ML 100 ML IV SCH ×2 (10:11→18:40)
[2018-08-08] MEDS ORDERED: NALBUPHINE HCL 10 MG/1ml INJECTION IV PRN (11:00)
[2018-08-08 11:03] LABS: Urine WBC None Seen /hpf (0 - 3)
[2018-08-08 11:14] LABS: Urine Bacteria NONE SEEN /hpf (None Seen); Urine Blood Negative /uL (Negative); Urine Specific Gravity 1.014 (1.001-1.035)
[2018-08-08] MEDS: ACCU-CHEK COMFORT CURVE STRIP VI SCH ×2 (12:15→18:00)
[2018-08-08] MEDS: MORPHINE SULFATE 4 MG/ML SYR/VIAL IV PRN ×2 (14:23→18:41)
[2018-08-08 17:00] VITALS: BP 107/68
[2018-08-08] MEDS: PROMETHAZINE HCL 25 MG/ML 1ML IV PRN (18:41)
[2018-08-08 22:00] VITALS: BP 104/58
[2018-08-08] MEDS: PANTOPRAZOLE 40 MG/10 ML VIAL IV SCH (22:14)
[2018-08-09] MEDS: MORPHINE SULFATE 4 MG/ML SYR/VIAL IV PRN ×4 (04:34→20:37)
[2018-08-09] MEDS: PROMETHAZINE HCL 25 MG/ML 1ML IV PRN ×4 (04:35→20:38)
[2018-08-09] MEDS: SODIUM CHLORIDE 0.9% 1,000 ML IV SCH ×3 (04:52→20:38)
[2018-08-09] MEDS: metroNIDAZOLE 500MG/100ML 100 ML IV SCH ×3 (05:42→21:46)
[2018-08-09 06:00] VITALS: BP 100/64
[2018-08-09] MEDS: ACCU-CHEK COMFORT CURVE STRIP VI SCH ×4 (06:08→18:01)
[2018-08-09 06:35] LABS: Basophils # (auto) 0 uL; Eosinophils # (auto) 0 uL; Hemoglobin 14.5 g/dL (13.5-17.5); Lymphocytes # (auto) 0.6 uL; Mean Corpuscular Hemoglobin 36.6 pg (28.0-32.0); Monocytes # (auto) 0.2 uL; Platelet Count (auto) 118 10^3/uL (140-450); White Blood Cell 2.9 10^3/uL (4.4-10.8)
[2018-08-09 06:38] LABS: Basophils % (auto) 0.6 % (0.0-2.0); Eosinophils % (auto) 0.1 % (0.0-7.0); Hematocrit 41.4 % (41.0-53.0); Lymphocytes % (auto) 22.1 % (10.0-50.0); Mean Corpuscular Volume 104.7 fL (80.0-100.0); Monocytes % (auto) 7.4 % (0.0-12.0); Neutrophils % (auto) 69.8 % (37.0-80.0); Red Blood Cells 3.96 10^6/uL (4.5-5.90)
[2018-08-09 06:48] LABS: Potassium 3.9 mmol/L (3.5-5.1)
[2018-08-09 06:58] LABS: Albumin 3.7 g/dL (3.4-5.0); BUN/Creatinine Ratio 11.4; Bilirubin, Total 1.5 mg/dL (0.2-1.0); Calcium 8.2 mg/dL (8.5-10.1); Total Protein 6.4 g/dL (6.4-8.2)
[2018-08-09 09:00] VITALS: BP 107/68
[2018-08-09] MEDS: cefTRIAXone 1GM/50ML D5W 50 ML IV SCH (10:30)
[2018-08-09] MEDS: PANTOPRAZOLE 40 MG/10 ML VIAL IV SCH ×2 (10:30→21:46)
[2018-08-09 13:00] VITALS: BP 103/60
[2018-08-09 17:28] VITALS: BP 97/65
[2018-08-09 21:31] VITALS: BP 101/65
[2018-08-10] MEDS: ACCU-CHEK COMFORT CURVE STRIP VI SCH ×5 (00:23→23:41)
[2018-08-10] MEDS: SODIUM CHLORIDE 0.9% 1,000 ML IV SCH ×4 (00:24→22:35)
[2018-08-10 04:42] VITALS: BP 97/62
[2018-08-10 05:24] LABS: Basophils # (auto) 0 uL; Basophils % (auto) 0.5 % (0.0-2.0); Eosinophils # (auto) 0 uL; Eosinophils % (auto) 1.3 % (0.0-7.0); Hematocrit 40.4 % (41.0-53.0); Lymphocytes # (auto) 1.2 uL; Mean Corpuscular Hgb Conc. 34.5 g/dL (32.0-36.0); Mean Corpuscular Volume 104.3 fL (80.0-100.0); Monocytes # (auto) 0.3 uL; Monocytes % (auto) 11.1 % (0.0-12.0); Neutrophils # (auto) 1.5 uL; Neutrophils % (auto) 48.1 % (37.0-80.0); Nucleated Red Blood Cells % 0.1 %; Platelet Count (auto) 119 10^3/uL (140-450); Red Blood Cells 3.88 10^6/uL (4.5-5.90); Red Cell Distribution Width 12.7 % (11.8-14.3); White Blood Cell 3.1 10^3/uL (4.4-10.8)
[2018-08-10 05:43] LABS: Albumin 3.5 g/dL (3.4-5.0); Calcium 8.4 mg/dL (8.5-10.1); Potassium 3.9 mmol/L (3.5-5.1)
[2018-08-10 05:47] LABS: Bilirubin, Total 1.5 mg/dL (0.2-1.0)
[2018-08-10] MEDS: metroNIDAZOLE 500MG/100ML 100 ML IV SCH ×3 (05:50→22:34)
[2018-08-10] MEDS: MORPHINE SULFATE 4 MG/ML SYR/VIAL IV PRN ×4 (08:07→22:37)
[2018-08-10] MEDS: PROMETHAZINE HCL 25 MG/ML 1ML IV PRN ×4 (08:07→22:38)
[2018-08-10 09:00] VITALS: BP 112/72
[2018-08-10] MEDS: cefTRIAXone 1GM/50ML D5W 50 ML IV SCH (09:48)
[2018-08-10] MEDS: PANTOPRAZOLE 40 MG/10 ML VIAL IV SCH ×2 (09:48→22:34)
[2018-08-10 12:45] VITALS: BP 119/74
[2018-08-10 16:00] VITALS: BP 99/56
[2018-08-10 21:55] VITALS: BP 106/66
[2018-08-11] MEDS: PROMETHAZINE HCL 25 MG/ML 1ML IV PRN ×2 (04:03→08:26)
[2018-08-11] MEDS: MORPHINE SULFATE 4 MG/ML SYR/VIAL IV PRN ×2 (04:03→08:26)
[2018-08-11] MEDS: SODIUM CHLORIDE 0.9% 1,000 ML IV SCH (04:32)
[2018-08-11 04:39] VITALS: BP 112/70
[2018-08-11 05:42] LABS: Basophils # (auto) 0 uL; Hemoglobin 14.2 g/dL (13.5-17.5); Mean Corpuscular Hemoglobin 36.5 pg (28.0-32.0); Monocytes # (auto) 0.2 uL; Nucleated Red Blood Cells % 0.1 %; Platelet Count (auto) 113 10^3/uL (140-450); Red Blood Cells 3.89 10^6/uL (4.5-5.90); Red Cell Distribution Width 12.5 % (11.8-14.3); White Blood Cell 2.4 10^3/uL (4.4-10.8)
[2018-08-11 05:45] LABS: Basophils % (auto) 1.2 % (0.0-2.0); Eosinophils # (auto) 0.1 uL; Eosinophils % (auto) 2.6 % (0.0-7.0); Hematocrit 40.2 % (41.0-53.0); Lymphocytes # (auto) 1.1 uL; Lymphocytes % (auto) 44.7 % (10.0-50.0); Mean Corpuscular Hgb Conc. 35.3 g/dL (32.0-36.0); Mean Corpuscular Volume 103.3 fL (80.0-100.0); Monocytes % (auto) 9.3 % (0.0-12.0); Neutrophils % (auto) 42.2 % (37.0-80.0)
[2018-08-11 06:00] LABS: Potassium 3.7 mmol/L (3.5-5.1)
[2018-08-11 06:10] LABS: Albumin 3.7 g/dL (3.4-5.0); BUN/Creatinine Ratio 9.5; Bilirubin, Total 1.3 mg/dL (0.2-1.0); Calcium 8.1 mg/dL (8.5-10.1); Total Protein 6.1 g/dL (6.4-8.2)
[2018-08-11 06:17] LABS: CRP High Sensitivity 0.02 mg/dL (< 0.3)
[2018-08-11] MEDS: metroNIDAZOLE 500MG/100ML 100 ML IV SCH (06:38)
[2018-08-11] MEDS: ACCU-CHEK COMFORT CURVE STRIP VI SCH (06:38)
[2018-08-11] MEDS: PANTOPRAZOLE 40 MG/10 ML VIAL IV SCH (08:27)
[2018-08-11] MEDS: cefTRIAXone 1GM/50ML D5W 50 ML IV SCH (08:27)
[2018-08-11 09:00] VITALS: BP 105/69
[2018-08-11 13:00] VITALS: BP 103/71
== END 2018-08-11 13:00 | disposition home or self-care (01) | DRG 282 ==
LOC: ER 02:58 → TELE 02:59 → TELE-CENTR 15:20
PROVIDERS: ADMIT Internal Medicine; ATTEND Internal Medicine
DX: K85.90 Acute pancreatitis without necrosis or infection, unspecified (principal); D69.6 Thrombocytopenia, unspecified; I10 Essential (primary) hypertension; D72.819 Decreased white blood cell count, unspecified; K86.1 Other chronic pancreatitis; Z80.3 Family history of malignant neoplasm of breast; Z80.42 Family history of malignant neoplasm of prostate; Z82.49 Family history of ischemic heart disease and other diseases of the circulatory system; Z83.3 Family history of diabetes mellitus; Z88.8 Allergy status to other drugs, medicaments and biological substances; Z87.891 Personal history of nicotine dependence
CPT/HCPCS: 36415; 74176; 76705; 80053; 80061; 81001; 82150; 82962; 83036; 83690; 83735; 85025; 86141; 96365; 96375; C9113; G0378; J0696; J2405; J2543; J3490

== ENCOUNTER 2018-10-03 18:53 | Emergency (ER) | payer MEDICAID ==
[~2018-10-03] VITALS: Ht 180.3 cm; Wt 59.0 kg
[2018-10-03 21:05] LABS: Eosinophils # (auto) 0.1 uL; Monocytes # (auto) 0.4 uL; Platelet Count (auto) 158 10^3/uL (140-450)
[2018-10-03 21:07] LABS: Basophils # (auto) 0.1 uL; Basophils % (auto) 1.5 % (0.0-2.0); Eosinophils % (auto) 1.7 % (0.0-7.0); Hematocrit 47.2 % (41.0-53.0); Hemoglobin 16.4 g/dL (13.5-17.5); Lymphocytes # (auto) 1.2 uL; Lymphocytes % (auto) 25.2 % (10.0-50.0); Mean Corpuscular Hemoglobin 36.3 pg (28.0-32.0); Mean Corpuscular Hgb Conc. 34.7 g/dL (32.0-36.0); Mean Corpuscular Volume 104.5 fL (80.0-100.0); Monocytes % (auto) 9.3 % (0.0-12.0); Neutrophils # (auto) 2.9 uL; Neutrophils % (auto) 62.3 % (37.0-80.0); Nucleated Red Blood Cells % 0.1 %; Red Blood Cells 4.52 10^6/uL (4.5-5.90); Red Cell Distribution Width 13.2 % (11.8-14.3); White Blood Cell 4.7 10^3/uL (4.4-10.8)
[2018-10-03 21:14] LABS: INR 0.99 (0.9-1.15); Partial Thromboplastin Time 26.7 sec (23.78-33.04); Prothrombin Time 10.6 sec (9.27-12.13)
[2018-10-03 21:25] LABS: Albumin 4.9 g/dL (3.4-5.0); Calcium 9.1 mg/dL (8.5-10.1); Magnesium 2.4 mg/dL (1.6-2.6); Potassium 3.8 mmol/L (3.5-5.1)
[2018-10-03 21:29] LABS: BUN/Creatinine Ratio 18.4; Total Protein 8.4 g/dL (6.4-8.2)
[2018-10-04 06:00] VITALS: BP 90/60
== END 2018-10-04 07:09 | disposition home or self-care (01) ==
LOC: ER 18:53
DX: K59.8 Other specified functional intestinal disorders (principal); Z88.6 Allergy status to analgesic agent; Z87.891 Personal history of nicotine dependence
CPT/HCPCS: 36415; 74176; 80053; 82150; 83605; 83690; 83735; 85025; 85610; 85730; 87040

== ENCOUNTER 2018-10-30 23:16 | Emergency (ER) | payer MEDICAID ==
[~2018-10-30] VITALS: Ht 177.8 cm; Wt 59.0 kg
[2018-10-31 00:42] LABS: Basophils # (auto) 0 uL; Eosinophils # (auto) 0 uL; Lymphocytes # (auto) 1.4 uL; Monocytes # (auto) 0.3 uL; Neutrophils # (auto) 3.2 uL
[2018-10-31 00:44] LABS: Basophils % (auto) 0.7 % (0.0-2.0); Eosinophils % (auto) 0.5 % (0.0-7.0); Hematocrit 44.5 % (41.0-53.0); Hemoglobin 15.5 g/dL (13.5-17.5); Lymphocytes % (auto) 28.1 % (10.0-50.0); Mean Corpuscular Hemoglobin 36.3 pg (28.0-32.0); Monocytes % (auto) 5.7 % (0.0-12.0); Nucleated Red Blood Cells % 0.2 %; Platelet Count (auto) 134 10^3/uL (140-450); Red Blood Cells 4.28 10^6/uL (4.5-5.90)
[2018-10-31 00:59] LABS: Albumin 4.6 g/dL (3.4-5.0)
[2018-10-31 01:02] LABS: BUN/Creatinine Ratio 19.5
[2018-10-31 01:04] LABS: Bilirubin, Total 0.7 mg/dL (0.2-1.0); Total Protein 7.8 g/dL (6.4-8.2)
[2018-10-31] MEDS ORDERED: SODIUM CHLORIDE 0.9% 1,000 ML IVB ONE (06:38)
[2018-10-31] MEDS ORDERED: PANTOPRAZOLE 40 MG/10 ML VIAL IV STA (06:38)
[2018-10-31 06:44] LABS: Urine Bacteria NONE SEEN /hpf (None Seen); Urine Blood Negative /uL (Negative); Urine Specific Gravity 1.015 (1.001-1.035); Urine WBC 1 /hpf (0 - 3)
[2018-10-31] MEDS ORDERED: HYDROmorphone HCL 2 MG/ML VL IV ONE (06:45)
[2018-10-31] MEDS ORDERED: ONDANSETRON HCL 4 MG/2 ML VIAL IV ONE (06:45)
[2018-10-31 08:03] VITALS: BP 121/77
[2018-11-01] MEDS ORDERED: BICT1TAB PO (16:58)
== END 2018-10-31 09:27 | disposition home or self-care (01) ==
LOC: ER 23:19
DX: K29.70 Gastritis, unspecified, without bleeding (principal); Z87.891 Personal history of nicotine dependence
CPT/HCPCS: 36415; 80053; 81001; 82150; 83690; 85025; 94761; 96361; 96374; 96375; 99283; C9113; J1170; J2405; J7030

== ENCOUNTER 2018-11-12 11:45 | Emergency (ER) | payer MEDICAID ==
[~2018-11-12] VITALS: Ht 177.8 cm; Wt 59.0 kg
[~2018-11-12 11:45] MED LIST changes: +BICT1TAB PO; -ELVI1TAB4 PO; -EMTR1TAB2 PO
[2018-11-12] MEDS ORDERED: HYDROmorphone HCL 2 MG/ML VL IM ONE (13:00)
[2018-11-12 14:25] LABS: Eosinophils # (auto) 0 uL; Lymphocytes # (auto) 1.1 uL; Lymphocytes % (auto) 19.6 % (10.0-50.0); Monocytes # (auto) 0.4 uL; Monocytes % (auto) 7.2 % (0.0-12.0); Neutrophils % (auto) 71.6 % (37.0-80.0)
[2018-11-12 14:28] LABS: Basophils # (auto) 0.1 uL; Basophils % (auto) 1.1 % (0.0-2.0); Eosinophils % (auto) 0.5 % (0.0-7.0); Hematocrit 44.4 % (41.0-53.0); Hemoglobin 15.6 g/dL (13.5-17.5); Mean Corpuscular Hemoglobin 36.6 pg (28.0-32.0); Mean Corpuscular Hgb Conc. 35.2 g/dL (32.0-36.0); Mean Corpuscular Volume 103.8 fL (80.0-100.0); Neutrophils # (auto) 3.9 uL; Nucleated Red Blood Cells % 0.1 %; Platelet Count (auto) 169 10^3/uL (140-450); Red Blood Cells 4.28 10^6/uL (4.5-5.90); White Blood Cell 5.5 10^3/uL (4.4-10.8)
[2018-11-12 15:01] LABS: Potassium 3.9 mmol/L (3.5-5.1)
[2018-11-12 15:09] LABS: Albumin 4.6 g/dL (3.4-5.0); BUN/Creatinine Ratio 13.3; Bilirubin, Total 0.9 mg/dL (0.2-1.0); Calcium 8.9 mg/dL (8.5-10.1); Total Protein 7.6 g/dL (6.4-8.2)
[2018-11-12 20:47] VITALS: BP 108/69
== END 2018-11-12 20:35 | disposition home or self-care (01) ==
LOC: ER 11:45
DX: M79.10 Myalgia, unspecified site (principal); R10.11 Right upper quadrant pain; R19.7 Diarrhea, unspecified; Z88.8 Allergy status to other drugs, medicaments and biological substances; Z79.899 Other long term (current) drug therapy
CPT/HCPCS: 36415; 80053; 85025

== ENCOUNTER 2018-11-12 20:33 | Inpatient (IN) | payer MEDICAID | END 2018-11-14 18:57 | disposition home or self-care (01) | LOC: ER 20:33 → TELE 11-13 09:30 → TELE-EAST 11-13 12:10 | DX: R10.9 Unspecified abdominal pain (principal); K86.1 Other chronic pancreatitis; G89.4 Chronic pain syndrome ==

== ENCOUNTER 2018-12-21 12:08 | Emergency (ER) | payer MEDICAID ==
[~2018-12-21] VITALS: Ht 177.8 cm; Wt 59.0 kg
[~2018-12-21 12:08] MED LIST changes: -HYDR-4683 PO; -PROM25TA5 PO
[2018-12-21 12:33] VITALS: BP 97/57
== END 2018-12-21 14:00 | disposition left against medical advice (07) ==
LOC: ER 12:08
DX: R10.11 Right upper quadrant pain (principal); Z53.29 Procedure and treatment not carried out because of patient's decision for other reasons

== ENCOUNTER 2018-12-29 14:56 | Emergency (ER) | payer MEDICAID ==
[~2018-12-29] VITALS: Ht 177.8 cm; Wt 60.8 kg
[2018-12-29 16:06] LABS: Albumin 4.6 g/dL (3.4-5.0); BUN/Creatinine Ratio 13.8; Calcium 8.9 mg/dL (8.5-10.1); Potassium 3.5 mmol/L (3.5-5.1)
[2018-12-29 16:09] LABS: Bilirubin, Total 0.8 mg/dL (0.2-1.0); Total Protein 7.6 g/dL (6.4-8.2)
[2018-12-29 16:16] LABS: Basophils # (auto) 0 uL; Eosinophils # (auto) 0 uL; Monocytes # (auto) 0.3 uL; Nucleated Red Blood Cells % 0.1 %
[2018-12-29 16:19] LABS: Basophils % (auto) 0.6 % (0.0-2.0); Eosinophils % (auto) 0.4 % (0.0-7.0); Hematocrit 45.7 % (41.0-53.0); Hemoglobin 15.5 g/dL (13.5-17.5); Lymphocytes # (auto) 0.9 uL; Lymphocytes % (auto) 20.6 % (10.0-50.0); Mean Corpuscular Hemoglobin 35.4 pg (28.0-32.0); Mean Corpuscular Hgb Conc. 33.8 g/dL (32.0-36.0); Mean Corpuscular Volume 104.8 fL (80.0-100.0); Monocytes % (auto) 7.1 % (0.0-12.0); Neutrophils # (auto) 3.1 uL; Neutrophils % (auto) 71.3 % (37.0-80.0); Platelet Count (auto) 136 10^3/uL (140-450); Red Blood Cells 4.37 10^6/uL (4.5-5.90); White Blood Cell 4.3 10^3/uL (4.4-10.8)
[2018-12-29 23:52] LABS: Urine Bacteria FEW /hpf (None Seen); Urine Blood Negative /uL (Negative); Urine Mucus FEW (None Seen); Urine Specific Gravity 1.015 (1.001-1.035); Urine WBC <1 /hpf (0 - 3)
[2018-12-30 07:45] VITALS: BP 131/77
[2018-12-30] MEDS ORDERED: HYDROcodone-ACET 10/325MG TAB PO ONE (07:45)
== END 2018-12-30 08:34 | disposition home or self-care (01) ==
LOC: ER 15:04
DX: R10.11 Right upper quadrant pain (principal); R11.2 Nausea with vomiting, unspecified; Z87.891 Personal history of nicotine dependence
CPT/HCPCS: 36415; 74176; 80053; 81001; 82150; 83690; 85025

== ENCOUNTER 2019-03-09 18:19 | Emergency (ER) | payer MEDICAID ==
[~2019-03-09] VITALS: Ht 177.8 cm; Wt 63.5 kg
[2019-03-09 18:53] VITALS: BP 101/64
[2019-03-09 19:46] LABS: Basophils # (auto) 0.1 uL; Hemoglobin 16.1 g/dL (13.5-17.5); Mean Corpuscular Hgb Conc. 34.1 g/dL (32.0-36.0)
[2019-03-09 19:50] LABS: Basophils % (auto) 1.6 % (0.0-2.0); Eosinophils # (auto) 0.1 uL; Eosinophils % (auto) 1.4 % (0.0-7.0); Hematocrit 47.2 % (41.0-53.0); Lymphocytes # (auto) 1.4 uL; Lymphocytes % (auto) 30.6 % (10.0-50.0); Mean Corpuscular Volume 102.4 fL (80.0-100.0); Monocytes # (auto) 0.4 uL; Monocytes % (auto) 8.5 % (0.0-12.0); Neutrophils # (auto) 2.7 uL; Neutrophils % (auto) 57.9 % (37.0-80.0); Nucleated Red Blood Cells % 0.1 %; Platelet Count (auto) 168 10^3/uL (140-450); Red Blood Cells 4.61 10^6/uL (4.5-5.90); White Blood Cell 4.6 10^3/uL (4.4-10.8)
[2019-03-09 19:57] LABS: Albumin 4.2 g/dL (3.4-5.0); BUN/Creatinine Ratio 14.9; Potassium 4.1 mmol/L (3.5-5.1)
[2019-03-09 19:59] LABS: Bilirubin, Total 0.6 mg/dL (0.2-1.0); Total Protein 7.6 g/dL (6.4-8.2)
[2019-03-09] MEDS ORDERED: ONDANSETRON ODT 4 MG TAB PO ONE (21:30)
== END 2019-03-09 22:28 | disposition left against medical advice (07) ==
LOC: ER 18:22
DX: R10.12 Left upper quadrant pain (principal); R11.10 Vomiting, unspecified; Z88.1 Allergy status to other antibiotic agents; Z79.899 Other long term (current) drug therapy; Z53.29 Procedure and treatment not carried out because of patient's decision for other reasons
CPT/HCPCS: 36415; 80053; 83690; 85025

== ENCOUNTER 2019-05-01 14:01 | Emergency (ER) | payer MEDICAID ==
[~2019-05-01] VITALS: Ht 177.8 cm; Wt 60.3 kg
[2019-05-01 14:30] VITALS: BP 124/70
[2019-05-01] MEDS ORDERED: MORPHINE SULFATE 4 MG/ML SYR/VIAL IV ONE (14:30)
[2019-05-01] MEDS ORDERED: SODIUM CHLORIDE 0.9% 1,000 ML IVB ONE (14:30)
[2019-05-01] MEDS ORDERED: ONDANSETRON HCL 4 MG/2 ML VIAL IV ONE (14:30)
[2019-05-01 14:51] LABS: Basophils # (auto) 0 uL; Eosinophils # (auto) 0 uL; Lymphocytes # (auto) 1.5 uL; Nucleated Red Blood Cells % 0.2 %; White Blood Cell 4.7 10^3/uL (4.4-10.8)
[2019-05-01 14:58] LABS: Basophils % (auto) 0.5 % (0.0-2.0); Eosinophils % (auto) 0.6 % (0.0-7.0); Hematocrit 49.9 % (41.0-53.0); Hemoglobin 17.2 g/dL (13.5-17.5); Lymphocytes % (auto) 31.5 % (10.0-50.0); Mean Corpuscular Hemoglobin 35.5 pg (28.0-32.0); Mean Corpuscular Hgb Conc. 34.4 g/dL (32.0-36.0); Mean Corpuscular Volume 103.2 fL (80.0-100.0); Monocytes # (auto) 0.4 uL; Monocytes % (auto) 7.7 % (0.0-12.0); Neutrophils # (auto) 2.8 uL; Neutrophils % (auto) 59.7 % (37.0-80.0); Platelet Count (auto) 142 10^3/uL (140-450); Red Blood Cells 4.84 10^6/uL (4.5-5.90); Red Cell Distribution Width 13.4 % (11.8-14.3)
[2019-05-01 15:16] LABS: Albumin 4.8 g/dL (3.4-5.0); Calcium 9.5 mg/dL (8.5-10.1); Potassium 3.6 mmol/L (3.5-5.1)
[2019-05-01 15:20] LABS: BUN/Creatinine Ratio 13.6; Bilirubin, Total 1.3 mg/dL (0.2-1.0); Total Protein 8.4 g/dL (6.4-8.2)
== END 2019-05-01 15:54 | disposition home or self-care (01) ==
LOC: ER 14:01
DX: K29.70 Gastritis, unspecified, without bleeding (principal); K86.1 Other chronic pancreatitis; Z88.6 Allergy status to analgesic agent; Z79.899 Other long term (current) drug therapy
CPT/HCPCS: 36415; 80053; 82962; 83690; 85025; 94761

== ENCOUNTER 2019-05-04 00:40 | Inpatient (IN) | payer MEDICAID ==
[~2019-05-04] VITALS: Ht 177.8 cm; Wt 60.3 kg
[2019-05-04 01:14] LABS: Basophils # (auto) 0 uL; Eosinophils # (auto) 0.1 uL; Eosinophils % (auto) 2.1 % (0.0-7.0); Lymphocytes # (auto) 1.4 uL; Mean Corpuscular Hemoglobin 35.4 pg (28.0-32.0); Neutrophils # (auto) 1.6 uL; Nucleated Red Blood Cells % 0.1 %; White Blood Cell 3.5 10^3/uL (4.4-10.8)
[2019-05-04 01:16] LABS: Hematocrit 43.2 % (41.0-53.0); Hemoglobin 14.8 g/dL (13.5-17.5); Lymphocytes % (auto) 40.3 % (10.0-50.0); Mean Corpuscular Hgb Conc. 34.2 g/dL (32.0-36.0); Mean Corpuscular Volume 103.2 fL (80.0-100.0); Monocytes # (auto) 0.4 uL; Monocytes % (auto) 11.8 % (0.0-12.0); Neutrophils % (auto) 44.8 % (37.0-80.0); Platelet Count (auto) 131 10^3/uL (140-450); Red Blood Cells 4.18 10^6/uL (4.5-5.90); Red Cell Distribution Width 13.6 % (11.8-14.3)
[2019-05-04] MEDS ORDERED: ONDANSETRON HCL 4 MG/2 ML VIAL IV ONE (01:30)
[2019-05-04] MEDS ORDERED: MORPHINE SULFATE 4 MG/ML SYR/VIAL IV ONE (01:30)
[2019-05-04 01:34] LABS: Albumin 4.1 g/dL (3.4-5.0); BUN/Creatinine Ratio 21.8; Calcium 8.7 mg/dL (8.5-10.1); Potassium 3.8 mmol/L (3.5-5.1)
[2019-05-04 01:41] LABS: Bilirubin, Total 0.9 mg/dL (0.2-1.0)
[2019-05-04 01:42] LABS: Total Protein 6.9 g/dL (6.4-8.2)
[2019-05-04 02:28] LABS: Urine Bacteria NONE SEEN /hpf (None Seen); Urine Blood Negative /uL (Negative); Urine Specific Gravity 1.009 (1.001-1.035); Urine WBC <1 /hpf (0 - 3)
[2019-05-04] MEDS ORDERED: ACETAMINOPHEN 500 MG TAB PO PRN (05:00)
[2019-05-04] MEDS ORDERED: ONDANSETRON HCL 4 MG/2 ML VIAL IV PRN (05:00)
[2019-05-04] MEDS ORDERED: SODIUM CHLORIDE 0.9% 1,000 ML IV SCH (05:00)
[2019-05-04] MEDS ORDERED: MORPHINE SULF INJ 2 MG/ML SYRINGE 1ML IV PRN (05:00)
[2019-05-04 09:02] VITALS: BP 118/82
[2019-05-04] MEDS ORDERED: PANTOPRAZOLE 40 MG TAB PO SCH (10:00)
[2019-05-04] MEDS ORDERED: GABAPENTIN 300 MG CAP PO SCH (14:00)
== END 2019-05-04 09:04 | disposition left against medical advice (07) | DRG 241 ==
LOC: ER 00:41 → OVERFLOW 00:42
PROVIDERS: ADMIT Nurse Practitioner Family; ATTEND Internal Medicine
DX: K29.70 Gastritis, unspecified, without bleeding (principal); F17.210 Nicotine dependence, cigarettes, uncomplicated; Z53.21 Procedure and treatment not carried out due to patient leaving prior to being seen by health care provider; Z88.6 Allergy status to analgesic agent; Z83.3 Family history of diabetes mellitus; Z82.49 Family history of ischemic heart disease and other diseases of the circulatory system
CPT/HCPCS: 36415; 74176; 80053; 81001; 82150; 83690; 85025; 96374; 96375; 96376; G0378; J2405

== ENCOUNTER 2019-07-25 01:21 | Inpatient (IN) | payer MEDICAID ==
[~2019-07-25] VITALS: Ht 177.8 cm; Wt 58.0 kg
[2019-07-25 02:25] LABS: Basophils # (auto) 0 uL; Basophils % (auto) 0.9 % (0.0-2.0); Eosinophils # (auto) 0.1 uL; Hemoglobin 16.8 g/dL (13.5-17.5); Lymphocytes # (auto) 1.4 uL; Mean Corpuscular Hemoglobin 36.2 pg (28.0-32.0); Monocytes # (auto) 0.3 uL; Monocytes % (auto) 8.9 % (0.0-12.0); Nucleated Red Blood Cells % 0.1 %
[2019-07-25 02:27] LABS: Eosinophils % (auto) 1.8 % (0.0-7.0); Hematocrit 48.3 % (41.0-53.0); Lymphocytes % (auto) 40.1 % (10.0-50.0); Mean Corpuscular Hgb Conc. 34.8 g/dL (32.0-36.0); Mean Corpuscular Volume 104.2 fL (80.0-100.0); Neutrophils # (auto) 1.7 uL; Neutrophils % (auto) 48.3 % (37.0-80.0); Platelet Count (auto) 137 10^3/uL (140-450); Red Blood Cells 4.63 10^6/uL (4.5-5.90); Red Cell Distribution Width 13.3 % (11.8-14.3); White Blood Cell 3.5 10^3/uL (4.4-10.8)
[2019-07-25 02:30] LABS: Urine Amorphous Crystal MOD /hpf (None Seen); Urine Bacteria FEW /hpf (None Seen); Urine Blood Negative /uL (Negative); Urine Specific Gravity 1.016 (1.001-1.035); Urine WBC 1 /hpf (0 - 3)
[2019-07-25 02:39] LABS: Albumin 4.5 g/dL (3.4-5.0); Calcium 9.1 mg/dL (8.5-10.1); Potassium 3.9 mmol/L (3.5-5.1)
[2019-07-25 02:45] LABS: Bilirubin, Total 0.7 mg/dL (0.2-1.0); Total Protein 7.8 g/dL (6.4-8.2)
[2019-07-25] MEDS ORDERED: LORazepam 2MG/ML-1ML VIAL IV ONE (07:30)
[2019-07-25] MEDS ORDERED: NALBUPHINE HCL 10 MG/1ml INJECTION IV ONE (07:30)
[2019-07-25] MEDS ORDERED: ONDANSETRON HCL 4 MG/2 ML VIAL IV ONE (07:30)
[2019-07-25] MEDS ORDERED: MORPHINE SULFATE 4 MG/ML SYR/VIAL IV ONE (08:00)
[2019-07-25] MEDS ORDERED: SODIUM CHLORIDE 0.9% 1,000 ML IV ONE (08:00)
[2019-07-25] MEDS ORDERED: ACETAMINOPHEN 500 MG TAB PO PRN (08:45)
[2019-07-25] MEDS ORDERED: EMTR1TAB12 PO (08:45)
[2019-07-25] MEDS: D5W/SOD CHLO 0.9% 1,000 ML IV SCH (09:27)
[2019-07-25] MEDS: DOCUSATE SOD 100 MG CAP PO SCH ×2 (09:30→21:38)
[2019-07-25] MEDS: RILPIVIRINE PO SCH (10:00)
[2019-07-25] MEDS: ODEFSEY PO SCH (10:00)
[2019-07-25] MEDS: TENOFOVIR PO SCH (10:00)
[2019-07-25] MEDS ORDERED: PATIENTS OWN MEDICATION PO SCH (10:00)
[2019-07-25] MEDS: FAMOTIDINE (10MG/ML) 2ML VL IV SCH ×2 (10:18→21:36)
[2019-07-25] MEDS: MORPHINE SULF INJ 2 MG/ML SYRINGE 1ML IV PRN ×4 (12:12→21:35)
[2019-07-25 12:47] VITALS: BP 117/76
[2019-07-25] MEDS: metroNIDAZOLE 500MG/100ML 100 ML IV SCH ×2 (13:49→21:36)
[2019-07-25] MEDS: PROMETHAZINE HCL 25 MG/ML 1ML IV PRN ×2 (16:27→20:53)
[2019-07-25 17:03] VITALS: BP 106/72
[2019-07-25] MEDS: SUCRALFATE 1 GM/10 ML ORAL SUSP PO SCH ×2 (17:07→21:36)
[2019-07-25 21:40] VITALS: BP 103/72
[2019-07-26] MEDS: D5W/SOD CHLO 0.9% 1,000 ML IV SCH ×3 (00:12→18:01)
[2019-07-26 04:47] VITALS: BP 107/72
[2019-07-26] MEDS: metroNIDAZOLE 500MG/100ML 100 ML IV SCH ×3 (06:22→22:25)
[2019-07-26] MEDS: SUCRALFATE 1 GM/10 ML ORAL SUSP PO SCH ×4 (06:23→22:25)
[2019-07-26 06:41] LABS: Eosinophils # (auto) 0.1 uL; Lymphocytes # (auto) 1.3 uL; Monocytes # (auto) 0.3 uL
[2019-07-26 06:45] LABS: Basophils # (auto) 0.1 uL; Basophils % (auto) 3.1 % (0.0-2.0); Hematocrit 45.2 % (41.0-53.0); Hemoglobin 15.3 g/dL (13.5-17.5); Lymphocytes % (auto) 45.3 % (10.0-50.0); Mean Corpuscular Hemoglobin 35.7 pg (28.0-32.0); Mean Corpuscular Volume 105.1 fL (80.0-100.0); Monocytes % (auto) 9.9 % (0.0-12.0); Neutrophils # (auto) 1.2 uL; Neutrophils % (auto) 39.7 % (37.0-80.0); Nucleated Red Blood Cells % 0.2 %; Platelet Count (auto) 130 10^3/uL (140-450)
[2019-07-26 07:00] LABS: Potassium 3.8 mmol/L (3.5-5.1)
[2019-07-26 07:13] LABS: Albumin 3.8 g/dL (3.4-5.0); BUN/Creatinine Ratio 10.7; Bilirubin, Total 1.8 mg/dL (0.2-1.0); Calcium 8.5 mg/dL (8.5-10.1); Total Protein 6.6 g/dL (6.4-8.2)
[2019-07-26 09:00] VITALS: BP 113/79
[2019-07-26] MEDS: DOCUSATE SOD 100 MG CAP PO SCH ×2 (09:08→22:25)
[2019-07-26] MEDS: PROMETHAZINE HCL 25 MG/ML 1ML IV PRN ×2 (09:08→17:13)
[2019-07-26] MEDS: MORPHINE SULF INJ 2 MG/ML SYRINGE 1ML IV PRN ×4 (09:08→22:44)
[2019-07-26] MEDS: TENOFOVIR PO SCH (09:09)
[2019-07-26] MEDS: RILPIVIRINE PO SCH (09:09)
[2019-07-26] MEDS: FAMOTIDINE (10MG/ML) 2ML VL IV SCH ×2 (09:09→22:25)
[2019-07-26] MEDS: ODEFSEY PO SCH (09:09)
[2019-07-26] MEDS: HYOSCYAMINE SULF 0.125 MG ODT TAB PO SCH ×2 (11:50→17:55)
[2019-07-26 13:00] VITALS: BP_SYST 105; BP_SYST 108; BP_DIAS 73; BP_DIAS 78
[2019-07-26] MEDS ORDERED: LIDOCAINE 5% TOPICAL PATCH TOP ONE (13:00)
[2019-07-26] MEDS: METOCLOPRAMIDE HCL 5MG/ml INJ 2ml VIAL IV SCH ×2 (13:42→22:25)
[2019-07-26 17:00] VITALS: BP 108/78
[2019-07-26 22:00] VITALS: BP 105/70
[2019-07-26] MEDS ORDERED: SENNA 8.6 MG TAB PO SCH (22:00)
[2019-07-27] MEDS: HYOSCYAMINE SULF 0.125 MG ODT TAB PO SCH ×3 (00:09→11:16)
[2019-07-27] MEDS: MORPHINE SULF INJ 2 MG/ML SYRINGE 1ML IV PRN ×2 (03:16→09:08)
[2019-07-27 05:00] VITALS: BP 104/68
[2019-07-27] MEDS: metroNIDAZOLE 500MG/100ML 100 ML IV SCH (05:49)
[2019-07-27] MEDS: METOCLOPRAMIDE HCL 5MG/ml INJ 2ml VIAL IV SCH ×2 (05:49→14:00)
[2019-07-27 06:10] LABS: Cholesterol 180 mg/dL (< 200); Lipase 74 U/L (73-393); Triglycerides 59 mg/dL (< 150)
[2019-07-27 06:13] LABS: HDL Cholesterol 59 mg/dL (40-59); LDL Cholesterol 113 mg/dL (< 100)
[2019-07-27] MEDS: SUCRALFATE 1 GM/10 ML ORAL SUSP PO SCH ×2 (06:41→11:15)
[2019-07-27] MEDS: ODEFSEY PO SCH (08:55)
[2019-07-27] MEDS: FAMOTIDINE (10MG/ML) 2ML VL IV SCH (08:55)
[2019-07-27] MEDS: RILPIVIRINE PO SCH (08:55)
[2019-07-27] MEDS: DOCUSATE SOD 100 MG CAP PO SCH (08:55)
[2019-07-27] MEDS: TENOFOVIR PO SCH (08:55)
[2019-07-27 09:00] VITALS: BP 108/63
[2019-07-27 12:00] VITALS: BP 114/74
[2019-07-27] MEDS: D5W/SOD CHLO 0.9% 1,000 ML IV SCH (14:05)
== END 2019-07-27 15:05 | disposition left against medical advice (07) | DRG 282 ==
LOC: ER 01:23 → OVERFLOW 01:24 → CENTRAL 11:28
PROVIDERS: ADMIT Nurse Practitioner Acute Care; ATTEND Internal Medicine
DX: K85.90 Acute pancreatitis without necrosis or infection, unspecified (principal); G89.29 Other chronic pain; K59.00 Constipation, unspecified; R62.7 Adult failure to thrive; Z68.1 Body mass index [BMI] 19.9 or less, adult; Z82.49 Family history of ischemic heart disease and other diseases of the circulatory system; Z83.3 Family history of diabetes mellitus; Z88.6 Allergy status to analgesic agent
CPT/HCPCS: 36415; 74176; 80053; 80061; 81001; 83690; 85025; 96361; 96374; 96375; G0378; J2405; J3490; J7042

== ENCOUNTER 2019-08-25 20:56 | Emergency (ER) | payer MEDICAID ==
[~2019-08-25] VITALS: Ht 177.8 cm; Wt 58.1 kg
[~2019-08-25 20:56] MED LIST changes: -BICT1TAB PO; +EMTR1TAB12 PO
[2019-08-25] MEDS ORDERED: SODIUM CHLORIDE 0.9% 1,000 ML IV ONE (22:00)
[2019-08-25] MEDS ORDERED: ONDANSETRON HCL 4 MG/2 ML VIAL IV ONE (22:00)
[2019-08-25 22:30] LABS: Eosinophils # (auto) 0 uL; Lymphocytes # (auto) 1.4 uL; Nucleated Red Blood Cells % 0.1 %; Red Blood Cells 4.38 10^6/uL (4.5-5.90); Red Cell Distribution Width 13.1 % (11.8-14.3)
[2019-08-25 22:32] LABS: Basophils # (auto) 0.1 uL; Basophils % (auto) 1.1 % (0.0-2.0); Eosinophils % (auto) 0.4 % (0.0-7.0); Hematocrit 45.5 % (41.0-53.0); Lymphocytes % (auto) 30.4 % (10.0-50.0); Mean Corpuscular Hemoglobin 36.6 pg (28.0-32.0); Mean Corpuscular Hgb Conc. 35.2 g/dL (32.0-36.0); Mean Corpuscular Volume 103.9 fL (80.0-100.0); Monocytes # (auto) 0.2 uL; Monocytes % (auto) 4.8 % (0.0-12.0); Neutrophils % (auto) 63.3 % (37.0-80.0); Platelet Count (auto) 138 10^3/uL (140-450); White Blood Cell 4.7 10^3/uL (4.4-10.8)
[2019-08-25 22:47] VITALS: BP 107/70
[2019-08-25 22:48] LABS: Albumin 4.7 g/dL (3.4-5.0); BUN/Creatinine Ratio 16.7; Calcium 9.2 mg/dL (8.5-10.1); Potassium 3.5 mmol/L (3.5-5.1)
[2019-08-25 22:51] LABS: Bilirubin, Total 1.2 mg/dL (0.2-1.0)
[2019-08-25 23:35] LABS: Urine Bacteria FEW /hpf (None Seen); Urine Blood Negative /uL (Negative); Urine Mucus FEW (None Seen); Urine Specific Gravity 1.026 (1.001-1.035); Urine WBC 1 /hpf (0 - 3)
[2019-08-25 23:46] LABS: Alcohol, Urine < 3.0 mg/dL (0-5); Amphetamine Screen, Urine NEGATIVE (NEGATIVE); Barbiturate Scree,Urine NEGATIVE (NEGATIVE); Benzodiazephine Screen, Urine NEGATIVE (NEGATIVE); Cannabinoid Screen, Urine POSITIVE (NEGATIVE); Cocaine Screen, Urine NEGATIVE (NEGATIVE); Opiate Scree,Urine NEGATIVE (NEGATIVE); Phencyclidine Screen, Urine NEGATIVE (NEGATIVE)
[2019-08-26] MEDS ORDERED: MAGNESIUM CITRATE SOLUTION 300 ML BTL PO ONE
== END 2019-08-25 23:13 | disposition home or self-care (01) ==
LOC: ER 20:58
DX: K59.03 Drug induced constipation (principal); T40.2X5A Adverse effect of other opioids, initial encounter; Y92.9 Unspecified place or not applicable
CPT/HCPCS: 36415; 74022; 80053; 80307; 81001; 82150; 83690; 85025; 96374; 99284; J2405; J7030

== ENCOUNTER → 2020-02-25 | Emergency (ER) | payer MEDICAID ==
[~2020-02-25] VITALS: Ht 177.8 cm; Wt 59.0 kg
[2020-02-25 11:23] VITALS: BP 99/61
== END | disposition home or self-care (01) ==
LOC: ER 11:12
DX: K29.70 Gastritis, unspecified, without bleeding (principal); E78.5 Hyperlipidemia, unspecified

== ENCOUNTER 2021-06-11 20:34 | Emergency (ER) | payer MEDICAID ==
[~2021-06-11] VITALS: Ht 177.8 cm; Wt 53.5 kg
[2021-06-11 20:48] VITALS: BP 118/70
[2021-06-11 21:19] LABS: Basophils # (auto) 0 10 ^3/uL (0-0.2); Eosinophils # (auto) 0 10 ^3/uL (0-0.8); Lymphocytes # (auto) 0.9 10 ^3/uL (0.4-5.4); Mean Corpuscular Hgb Conc. 34.4 g/dL (32.0-36.0); Monocytes # (auto) 0.4 10 ^3/uL (0-1.3); Nucleated Red Blood Cells % 0.1 %
[2021-06-11 21:21] LABS: Basophils % (auto) 0.8 % (0.0-2.0); Eosinophils % (auto) 0.1 % (0.0-7.0); Hematocrit 46.8 % (41.0-53.0); Hemoglobin 16.1 g/dL (13.5-17.5); Mean Corpuscular Hemoglobin 35.3 pg (28.0-32.0); Mean Corpuscular Volume 102.8 fL (80.0-100.0); Monocytes % (auto) 6.5 % (0.0-12.0); Neutrophils # (auto) 4.5 10 ^3/uL (1.6-8.6); Neutrophils % (auto) 77.6 % (37.0-80.0); Red Blood Cells 4.55 10^6/uL (4.5-5.90); Red Cell Distribution Width 12.9 % (11.8-14.3); White Blood Cell 5.8 10^3/uL (4.4-10.8)
[2021-06-11 21:35] LABS: Albumin 4.5 g/dL (3.4-5.0); Calcium 9.5 mg/dL (8.5-10.1); Potassium 3.7 mmol/L (3.5-5.1)
[2021-06-11 21:39] LABS: Bilirubin, Total 1.4 mg/dL (0.2-1.0); Total Protein 7.9 g/dL (6.4-8.2)
[2021-06-11] MEDS ORDERED: MORPHINE SULFATE 4 MG/ML SYR/VIAL IV ONE (21:45)
[2021-06-11] MEDS ORDERED: SODIUM CHLORIDE 0.9% 2,000 ML IV ONE (21:45)
[2021-06-11] MEDS ORDERED: ONDANSETRON HCL 4 MG/2 ML VIAL IV ONE (21:45)
[2021-06-12] MEDS ORDERED: ONDANSETRON ODT 4 MG TAB PO ONE (03:00)
== END 2021-06-12 05:09 | disposition left against medical advice (07) ==
LOC: ER 20:38
DX: K86.1 Other chronic pancreatitis (principal); K59.00 Constipation, unspecified; E78.5 Hyperlipidemia, unspecified; F17.210 Nicotine dependence, cigarettes, uncomplicated; Z79.899 Other long term (current) drug therapy; Z88.8 Allergy status to other drugs, medicaments and biological substances
CPT/HCPCS: 36415; 74176; 80053; 82150; 83690; 83735; 85025; 93005; 96374

== ENCOUNTER 2022-11-28 17:09 | Inpatient (IN) | payer MEDICAID ==
[~2022-11-28] VITALS: Ht 180.3 cm; Wt 64.7 kg
[2022-11-28 17:36] LABS: Urine WBC None Seen /hpf (0 - 3)
[2022-11-28 17:39] LABS: Basophils # (auto) 0 10 ^3/uL (0-0.2); Eosinophils # (auto) 0 10 ^3/uL (0-0.8); Hematocrit 46.1 % (41.0-53.0); Monocytes # (auto) 0.3 10 ^3/uL (0-1.3); Nucleated Red Blood Cells % 0.1 %
[2022-11-28 17:41] LABS: Basophils % (auto) 0.8 % (0.0-2.0); Eosinophils % (auto) 0.7 % (0.0-7.0); Hemoglobin 16.2 g/dL (13.5-17.5); Lymphocytes # (auto) 1.4 10 ^3/uL (0.4-5.4); Lymphocytes % (auto) 34.2 % (10.0-50.0); Mean Corpuscular Hemoglobin 37.6 pg (28.0-32.0); Mean Corpuscular Hgb Conc. 35.2 g/dL (32.0-36.0); Mean Corpuscular Volume 106.7 fL (80.0-100.0); Monocytes % (auto) 6.8 % (0.0-12.0); Neutrophils # (auto) 2.4 10 ^3/uL (1.6-8.6); Neutrophils % (auto) 57.5 % (37.0-80.0); Red Blood Cells 4.32 10^6/uL (4.5-5.90); Red Cell Distribution Width 13.3 % (11.8-14.3); White Blood Cell 4.1 10^3/uL (4.4-10.8)
[2022-11-28 18:03] LABS: Albumin 4.8 g/dL (3.4-5.0); Calcium 9.4 mg/dL (8.5-10.1); Potassium 3.8 mmol/L (3.5-5.1)
[2022-11-28 18:04] LABS: Alcohol, Urine < 3.0 mg/dL (0-10); Amphetamine Screen, Urine NEGATIVE (NEGATIVE); Barbiturate Scree,Urine NEGATIVE (NEGATIVE); Benzodiazephine Screen, Urine NEGATIVE (NEGATIVE); Cannabinoid Screen, Urine POSITIVE (NEGATIVE); Cocaine Screen, Urine NEGATIVE (NEGATIVE); Opiate Scree,Urine NEGATIVE (NEGATIVE); Phencyclidine Screen, Urine NEGATIVE (NEGATIVE)
[2022-11-28 18:12] LABS: Bilirubin, Total 0.6 mg/dL (0.2-1.0); Total Protein 7.4 g/dL (6.4-8.2)
[2022-11-28 18:31] LABS: Urine Bacteria NONE SEEN /hpf (None Seen); Urine Blood Negative /uL (Negative); Urine Specific Gravity 1.009 (1.001-1.035)
[2022-11-28] MEDS ORDERED: LACTATED RINGER'S 2,000 ML IV ONE (19:00)
[2022-11-28] MEDS ORDERED: MORPHINE SULFATE 4 MG/ML SYR/VIAL IV ONE ×2 (19:00→21:15)
[2022-11-28] MEDS ORDERED: ONDANSETRON HCL 4 MG/2 ML VIAL IV ONE (19:00)
[2022-11-28] MEDS ORDERED: IOHEXOL 300 MG/ML 100ML BOTTLE IJ ONE (19:28)
[2022-11-28 21:32] LABS: Lactic Acid w/Reflex 2.1 mmol/L (0.4-2.0)
[2022-11-28 21:33] LABS: Bilirubin, Direct 0.2 mg/dL (0-0.2); Bilirubin, Total 0.6 mg/dL (0.2-1.0)
[2022-11-28] MEDS: METOCLOPRAMIDE HCL 5MG/ml INJ 2ml VIAL IV PRN (22:15)
[2022-11-28] MEDS ORDERED: PANTOPRAZOLE 40 MG/10 ML VIAL INJ IV ONE (22:15)
[2022-11-28] MEDS ORDERED: cefTRIAXone 1GM/50ML D5W 50 ML IV ONE (22:15)
[2022-11-28] MEDS ORDERED: metroNIDAZOLE 500MG/100ML 100 ML IV ONE (22:15)
[2022-11-28] MEDS: LACTATED RINGER'S 1,000 ML IV SCH (22:19)
[2022-11-28 22:26] LABS: Cholesterol 183 mg/dL (< 200); LDL Cholesterol 105 mg/dL (< 100); Triglycerides 58 mg/dL (< 150)
[2022-11-28 22:28] LABS: HDL Cholesterol 61 mg/dL (40-59)
[2022-11-29] MEDS ORDERED: HYDROcodone-ACET 5/325MG TAB PO PRN (00:45)
[2022-11-29] MEDS: METOCLOPRAMIDE HCL 5MG/ml INJ 2ml VIAL IV PRN ×4 (02:17→21:36)
[2022-11-29] MEDS: MORPHINE SULFATE INJ 2 MG/ml SYRG IV PRN ×4 (02:17→21:37)
[2022-11-29] MEDS: ONDANSETRON HCL 4 MG/2 ML VIAL IV PRN (05:01)
[2022-11-29] MEDS: LACTATED RINGER'S 1,000 ML IV SCH ×3 (06:22→22:00)
[2022-11-29 06:32] LABS: Basophils # (auto) 0 10 ^3/uL (0-0.2); Basophils % (auto) 0.9 % (0.0-2.0); Eosinophils # (auto) 0 10 ^3/uL (0-0.8); Eosinophils % (auto) 0.2 % (0.0-7.0); Hematocrit 42.9 % (41.0-53.0); Hemoglobin 15.3 g/dL (13.5-17.5); Lymphocytes % (auto) 36.3 % (10.0-50.0); Mean Corpuscular Hemoglobin 38.3 pg (28.0-32.0); Mean Corpuscular Hgb Conc. 35.6 g/dL (32.0-36.0); Mean Corpuscular Volume 107.6 fL (80.0-100.0); Monocytes # (auto) 0.4 10 ^3/uL (0-1.3); Monocytes % (auto) 7.1 % (0.0-12.0); Neutrophils # (auto) 3.1 10 ^3/uL (1.6-8.6); Neutrophils % (auto) 55.5 % (37.0-80.0); Nucleated Red Blood Cells % 0.1 %; Red Blood Cells 3.98 10^6/uL (4.5-5.90); Red Cell Distribution Width 12.9 % (11.8-14.3); White Blood Cell 5.6 10^3/uL (4.4-10.8)
[2022-11-29] MEDS: metroNIDAZOLE 500MG/100ML 100 ML IV SCH ×3 (06:53→22:19)
[2022-11-29 07:00] LABS: Potassium 3.5 mmol/L (3.5-5.1)
[2022-11-29 07:11] LABS: Albumin 4.6 g/dL (3.4-5.0); BUN/Creatinine Ratio 8.3; Bilirubin, Total 1.1 mg/dL (0.2-1.0); Calcium 9.5 mg/dL (8.5-10.1); Total Protein 7.2 g/dL (6.4-8.2)
[2022-11-29] MEDS: PANTOPRAZOLE 40 MG/10 ML VIAL INJ IV SCH (09:17)
[2022-11-29] MEDS: cefTRIAXone 1GM/50ML D5W 50 ML IV SCH (09:17)
[2022-11-29 15:52] LABS: Amylase 349 U/L (25-115); Lipase 1299 U/L (73-393)
[2022-11-30] MEDS: METOCLOPRAMIDE HCL 5MG/ml INJ 2ml VIAL IV PRN ×2 (04:06→13:13)
[2022-11-30] MEDS: MORPHINE SULFATE INJ 2 MG/ml SYRG IV PRN ×4 (04:07→23:14)
[2022-11-30 06:16] LABS: Amylase 227 U/L (25-115); Lipase 1120 U/L (73-393)
[2022-11-30] MEDS: metroNIDAZOLE 500MG/100ML 100 ML IV SCH ×3 (06:27→21:54)
[2022-11-30] MEDS: LACTATED RINGER'S 1,000 ML IV SCH ×3 (08:00→22:00)
[2022-11-30] MEDS: PANTOPRAZOLE 40 MG/10 ML VIAL INJ IV SCH (09:44)
[2022-11-30] MEDS: cefTRIAXone 1GM/50ML D5W 50 ML IV SCH (09:45)
[2022-11-30 13:00] VITALS: BP 152/87
[2022-11-30 13:10] VITALS: BP 109/74
[2022-11-30] MEDS ORDERED: DOLU1TAB6 PO (13:58)
[2022-11-30] MEDS ORDERED: [UNRECOGNIZED DRUG - CODE] PO (13:58)
[2022-11-30] MEDS ORDERED: PANC3600 OR (13:58)
[2022-11-30 16:14] VITALS: BP 109/74
[2022-11-30] MEDS: ONDANSETRON HCL 4 MG/2 ML VIAL IV PRN ×2 (17:56→23:14)
[2022-11-30 20:00] VITALS: BP 109/74
[2022-11-30 22:00] VITALS: BP 109/74
[2022-12-01] VITALS (7 sets, daily range): BP systolic 103–136; BP diastolic 61–84
[2022-12-01] MEDS: LACTATED RINGER'S 1,000 ML IV SCH ×3 (00:43→20:50)
[2022-12-01] MEDS: MORPHINE SULFATE INJ 2 MG/ml SYRG IV PRN ×5 (05:33→22:50)
[2022-12-01] MEDS: ONDANSETRON HCL 4 MG/2 ML VIAL IV PRN ×3 (05:34→22:49)
[2022-12-01] MEDS: metroNIDAZOLE 500MG/100ML 100 ML IV SCH ×3 (05:44→22:45)
[2022-12-01] MEDS: cefTRIAXone 1GM/50ML D5W 50 ML IV SCH (08:48)
[2022-12-01] MEDS: PANTOPRAZOLE 40 MG/10 ML VIAL INJ IV SCH (10:12)
[2022-12-01] MEDS: METOCLOPRAMIDE HCL 5MG/ml INJ 2ml VIAL IV PRN ×2 (10:13→18:24)
[2022-12-01] MEDS: DOVATO PO SCH (15:28)
[2022-12-01 17:39] LABS: Amylase 76 U/L (25-115); Lipase 64 U/L (73-393)
[2022-12-02 05:00] VITALS: BP 102/64
[2022-12-02] MEDS: ONDANSETRON HCL 4 MG/2 ML VIAL IV PRN ×4 (05:29→20:01)
[2022-12-02] MEDS: MORPHINE SULFATE INJ 2 MG/ml SYRG IV PRN ×3 (05:30→15:28)
[2022-12-02] MEDS: metroNIDAZOLE 500MG/100ML 100 ML IV SCH ×3 (05:38→21:15)
[2022-12-02] MEDS: LACTATED RINGER'S 1,000 ML IV SCH (06:00)
[2022-12-02 07:33] LABS: Amylase 115 U/L (25-115); Lipase 459 U/L (73-393)
[2022-12-02 09:00] VITALS: BP 97/66
[2022-12-02] MEDS: cefTRIAXone 1GM/50ML D5W 50 ML IV SCH (10:39)
[2022-12-02] MEDS: PANTOPRAZOLE 40 MG/10 ML VIAL INJ IV SCH (10:40)
[2022-12-02] MEDS: DOVATO PO SCH (10:41)
[2022-12-02 13:00] VITALS: BP 123/77
[2022-12-02] MEDS ORDERED: PANC3600 OR (13:28)
[2022-12-02] MEDS: PANCREATIC ENZYMES 4200 UNIT CAP PO SCH ×2 (14:42→18:11)
[2022-12-02 16:59] VITALS: BP 115/72
[2022-12-02] MEDS: HYDROmorphone HCL 2 MG/ML VL/or syr IV PRN (18:30)
[2022-12-02] MEDS: METOCLOPRAMIDE HCL 5MG/ml INJ 2ml VIAL IV PRN (18:30)
[2022-12-03] MEDS: HYDROmorphone HCL 2 MG/ML VL/or syr IV PRN (01:26)
[2022-12-03] MEDS: ONDANSETRON HCL 4 MG/2 ML VIAL IV PRN (01:26)
[2022-12-03 05:00] VITALS: BP 106/69
[2022-12-03] MEDS: metroNIDAZOLE 500MG/100ML 100 ML IV SCH ×2 (05:58→14:00)
[2022-12-03 09:00] VITALS: BP 114/74
[2022-12-03] MEDS: cefTRIAXone 1GM/50ML D5W 50 ML IV SCH (09:26)
[2022-12-03] MEDS: PANTOPRAZOLE 40 MG/10 ML VIAL INJ IV SCH (09:27)
[2022-12-03] MEDS: PANCREATIC ENZYMES 4200 UNIT CAP PO SCH ×2 (09:27→12:35)
[2022-12-03] MEDS: DOVATO PO SCH (09:27)
[2022-12-03 12:44] LABS: Hepatitis C Antibody Negative (Negative)
[2022-12-03 13:00] VITALS: BP 112/81
== END 2022-12-03 15:52 | disposition home or self-care (01) | DRG 282 ==
LOC: ER 17:09 → OVERFLOW 22:02 → WEST WING 11-30 12:17
PROVIDERS: ADMIT Registered Nurse; ATTEND Internal Medicine
DX: K85.90 Acute pancreatitis without necrosis or infection, unspecified (principal); E78.5 Hyperlipidemia, unspecified; F12.90 Cannabis use, unspecified, uncomplicated; I10 Essential (primary) hypertension; K29.70 Gastritis, unspecified, without bleeding; Z83.3 Family history of diabetes mellitus; F17.210 Nicotine dependence, cigarettes, uncomplicated; K20.90 Esophagitis, unspecified without bleeding; K52.9 Noninfective gastroenteritis and colitis, unspecified; K86.1 Other chronic pancreatitis; Z82.49 Family history of ischemic heart disease and other diseases of the circulatory system; Z88.8 Allergy status to other drugs, medicaments and biological substances; Z87.19 Personal history of other diseases of the digestive system; Z20.822 Contact with and (suspected) exposure to COVID-19
CPT/HCPCS: 36415; 74177; 76700; 80053; 80061; 80307; 81001; 82150; 82247; 82248; 82977; 83605; 83690; 85025; 86141; 86803; 87040; 87340; 87426; 87804; 96361; 96365; 96375; 96376; C9113; G0378; J0696; J2405; J3490

== ENCOUNTER 2022-12-27 18:41 | Inpatient (IN) | payer MEDICAID ==
[~2022-12-27] VITALS: Ht 180.3 cm; Wt 58.0 kg
[~2022-12-27 18:41] MED LIST changes: +DOLU1TAB6 PO; -EMTR1TAB12 PO; +PANC3600 OR; +[UNRECOGNIZED DRUG - CODE] PO
[2022-12-27 20:18] LABS: Basophils # (auto) 0 10 ^3/uL (0-0.2); Basophils % (auto) 0.8 % (0.0-2.0); Eosinophils # (auto) 0 10 ^3/uL (0-0.8); Eosinophils % (auto) 0.7 % (0.0-7.0); Hematocrit 45.2 % (41.0-53.0); Hemoglobin 15.7 g/dL (13.5-17.5); Lymphocytes # (auto) 1.7 10 ^3/uL (0.4-5.4); Lymphocytes % (auto) 33.4 % (10.0-50.0); Mean Corpuscular Hemoglobin 37.4 pg (28.0-32.0); Mean Corpuscular Hgb Conc. 34.8 g/dL (32.0-36.0); Mean Corpuscular Volume 107.3 fL (80.0-100.0); Monocytes # (auto) 0.3 10 ^3/uL (0-1.3); Monocytes % (auto) 5.5 % (0.0-12.0); Neutrophils % (auto) 59.6 % (37.0-80.0); Nucleated Red Blood Cells % 0.2 %; Red Blood Cells 4.21 10^6/uL (4.5-5.90); Red Cell Distribution Width 13.2 % (11.8-14.3)
[2022-12-27 20:39] LABS: Albumin 4.5 g/dL (3.4-5.0); Calcium 9.9 mg/dL (8.5-10.1); Potassium 3.9 mmol/L (3.5-5.1)
[2022-12-27 20:45] LABS: BUN/Creatinine Ratio 12.3 (10.0-20.0); Bilirubin, Total 0.7 mg/dL (0.2-1.0); Total Protein 7.6 g/dL (6.4-8.2)
[2022-12-27] MEDS ORDERED: SODIUM CHLORIDE 0.9% 1,000 ML IV ONE (22:15)
[2022-12-27] MEDS ORDERED: SODIUM CHLORIDE 0.9% 2,000 ML IV ONE (23:00)
[2022-12-27] MEDS ORDERED: DEXTROSE (50%) 50ML SYRG IV PRN (23:00)
[2022-12-28] MEDS: METOCLOPRAMIDE HCL 5MG/ml INJ 2ml VIAL IV PRN ×2 (00:24→09:07)
[2022-12-28] MEDS: MORPHINE SULFATE INJ 2 MG/ml SYRG IV PRN ×5 (00:25→22:24)
[2022-12-28] MEDS: ACCU-CHEK COMFORT CURVE STRIP VI SCH ×4 (00:35→17:39)
[2022-12-28] MEDS: InsuLIN REG 1unit/0.01ml Soln (100units/ml) SC SCH ×4 (00:36→17:39)
[2022-12-28 01:47] LABS: Urine WBC None Seen /hpf (0 - 3)
[2022-12-28 01:58] LABS: Urine Bacteria NONE SEEN /hpf (None Seen); Urine Blood Negative /uL (Negative); Urine Specific Gravity 1.003 (1.001-1.035)
[2022-12-28] MEDS: SODIUM CHLORIDE 0.9% 1,000 ML IV SCH ×3 (04:14→15:12)
[2022-12-28] MEDS: ONDANSETRON HCL 4 MG/2 ML VIAL IV PRN ×3 (04:19→22:33)
[2022-12-28 05:11] LABS: Basophils # (auto) 0 10 ^3/uL (0-0.2); Eosinophils # (auto) 0 10 ^3/uL (0-0.8); Hemoglobin 13.9 g/dL (13.5-17.5); Mean Corpuscular Volume 108.4 fL (80.0-100.0); Neutrophils # (auto) 1.5 10 ^3/uL (1.6-8.6); Nucleated Red Blood Cells % 0.1 %; Red Blood Cells 3.69 10^6/uL (4.5-5.90); White Blood Cell 3.8 10^3/uL (4.4-10.8)
[2022-12-28 05:13] LABS: Basophils % (auto) 0.7 % (0.0-2.0); Eosinophils % (auto) 1.2 % (0.0-7.0); Lymphocytes # (auto) 1.8 10 ^3/uL (0.4-5.4); Lymphocytes % (auto) 48.6 % (10.0-50.0); Mean Corpuscular Hemoglobin 37.7 pg (28.0-32.0); Mean Corpuscular Hgb Conc. 34.8 g/dL (32.0-36.0); Monocytes # (auto) 0.4 10 ^3/uL (0-1.3); Monocytes % (auto) 9.4 % (0.0-12.0); Neutrophils % (auto) 40.1 % (37.0-80.0); Red Cell Distribution Width 13.2 % (11.8-14.3)
[2022-12-28 05:27] LABS: Calcium 7.9 mg/dL (8.5-10.1)
[2022-12-28 05:33] LABS: Albumin 3.3 g/dL (3.4-5.0); BUN/Creatinine Ratio 11.6 (10.0-20.0); Bilirubin, Total 1.1 mg/dL (0.2-1.0); Total Protein 5.9 g/dL (6.4-8.2)
[2022-12-28] MEDS: ENOXAPARIN SOD 40 MG/0.4 ML SYRINGE SC SCH (12:04)
[2022-12-28] MEDS: PANTOPRAZOLE 40 MG/10 ML VIAL INJ IV SCH (12:04)
[2022-12-28 13:25] VITALS: BP 115/72
[2022-12-28] MEDS ORDERED: FAMO-12 PO (15:11)
[2022-12-28 16:02] LABS: Albumin 3.5 g/dL (3.4-5.0)
[2022-12-28 16:07] LABS: Bilirubin, Direct 0.2 mg/dL (0-0.2); Bilirubin, Total 1.3 mg/dL (0.2-1.0)
[2022-12-28 17:00] VITALS: BP 110/76
[2022-12-28 20:00] VITALS: BP 128/75
[2022-12-28 22:00] VITALS: BP 110/71
[2022-12-29] MEDS: ACCU-CHEK COMFORT CURVE STRIP VI SCH ×5 (00:03→23:14)
[2022-12-29] MEDS: SODIUM CHLORIDE 0.9% 1,000 ML IV SCH ×2 (00:03→12:55)
[2022-12-29 05:00] VITALS: BP 103/63
[2022-12-29] MEDS: InsuLIN REG 1unit/0.01ml Soln (100units/ml) SC SCH ×5 (05:21→23:14)
[2022-12-29 06:39] LABS: Amylase 229 U/L (25-115); Lipase 925 U/L (73-393)
[2022-12-29 09:00] VITALS: BP 109/65
[2022-12-29] MEDS: ONDANSETRON HCL 4 MG/2 ML VIAL IV PRN ×3 (09:44→19:57)
[2022-12-29] MEDS: PANTOPRAZOLE 40 MG/10 ML VIAL INJ IV SCH (09:44)
[2022-12-29] MEDS: MORPHINE SULFATE INJ 2 MG/ml SYRG IV PRN ×5 (09:45→23:15)
[2022-12-29] MEDS: ENOXAPARIN SOD 40 MG/0.4 ML SYRINGE SC SCH (11:37)
[2022-12-29 13:11] VITALS: BP 127/71
[2022-12-29] MEDS: SUCRALFATE 1 GM TAB PO SCH ×2 (16:46→21:58)
[2022-12-29] MEDS: METOCLOPRAMIDE HCL 5MG/ml INJ 2ml VIAL IV PRN ×2 (16:46→23:15)
[2022-12-29 17:00] VITALS: BP 127/77
[2022-12-29] MEDS: D5W 5% 1,000 ML IV SCH (18:05)
[2022-12-29 22:00] VITALS: BP 132/64
[2022-12-30] MEDS: ONDANSETRON HCL 4 MG/2 ML VIAL IV PRN ×5 (02:17→22:38)
[2022-12-30] MEDS: MORPHINE SULFATE INJ 2 MG/ml SYRG IV PRN ×6 (02:17→22:38)
[2022-12-30] MEDS: D5W 5% 1,000 ML IV SCH ×2 (03:37→14:06)
[2022-12-30 05:10] VITALS: BP 112/64
[2022-12-30] MEDS: METOCLOPRAMIDE HCL 5MG/ml INJ 2ml VIAL IV PRN (05:22)
[2022-12-30] MEDS: InsuLIN REG 1unit/0.01ml Soln (100units/ml) SC SCH ×4 (06:00→23:34)
[2022-12-30] MEDS: ACCU-CHEK COMFORT CURVE STRIP VI SCH ×4 (06:04→23:34)
[2022-12-30] MEDS: SUCRALFATE 1 GM TAB PO SCH ×4 (06:05→22:10)
[2022-12-30 09:00] VITALS: BP 116/74
[2022-12-30] MEDS: PANTOPRAZOLE 40 MG/10 ML VIAL INJ IV SCH (09:53)
[2022-12-30] MEDS: ENOXAPARIN SOD 40 MG/0.4 ML SYRINGE SC SCH (09:54)
[2022-12-30 12:53] VITALS: BP 128/74
[2022-12-30 17:00] VITALS: BP 116/78
[2022-12-30 22:00] VITALS: BP 111/82
[2022-12-31] MEDS: D5W 5% 1,000 ML IV SCH ×3 (01:32→19:45)
[2022-12-31] MEDS: ONDANSETRON HCL 4 MG/2 ML VIAL IV PRN ×5 (02:44→22:56)
[2022-12-31] MEDS: MORPHINE SULFATE INJ 2 MG/ml SYRG IV PRN ×6 (02:44→22:56)
[2022-12-31 05:00] VITALS: BP 112/72
[2022-12-31] MEDS: InsuLIN REG 1unit/0.01ml Soln (100units/ml) SC SCH ×3 (05:59→17:36)
[2022-12-31] MEDS: ACCU-CHEK COMFORT CURVE STRIP VI SCH ×3 (05:59→17:36)
[2022-12-31] MEDS: SUCRALFATE 1 GM TAB PO SCH ×4 (06:42→21:50)
[2022-12-31 09:00] VITALS: BP 113/83
[2022-12-31] MEDS: PANTOPRAZOLE 40 MG/10 ML VIAL INJ IV SCH (09:57)
[2022-12-31] MEDS: METOCLOPRAMIDE HCL 5MG/ml INJ 2ml VIAL IV PRN (09:57)
[2022-12-31] MEDS: ENOXAPARIN SOD 40 MG/0.4 ML SYRINGE SC SCH (09:58)
[2022-12-31 13:00] VITALS: BP 109/75
[2022-12-31 17:00] VITALS: BP 115/80
[2022-12-31 22:00] VITALS: BP 117/76
[2023-01-01] MEDS: MORPHINE SULFATE INJ 2 MG/ml SYRG IV PRN ×2 (03:17→07:08)
[2023-01-01] MEDS: ONDANSETRON HCL 4 MG/2 ML VIAL IV PRN ×3 (03:18→11:13)
[2023-01-01] MEDS: D5W 5% 1,000 ML IV SCH ×2 (03:23→17:33)
[2023-01-01 05:00] VITALS: BP 114/74
[2023-01-01] MEDS: InsuLIN REG 1unit/0.01ml Soln (100units/ml) SC SCH ×5 (06:00→23:52)
[2023-01-01] MEDS: ACCU-CHEK COMFORT CURVE STRIP VI SCH ×5 (06:29→23:52)
[2023-01-01] MEDS: SUCRALFATE 1 GM TAB PO SCH ×2 (06:30→11:14)
[2023-01-01 08:00] VITALS: BP 110/71
[2023-01-01 08:30] VITALS: BP 110/71
[2023-01-01] MEDS: PANTOPRAZOLE 40 MG/10 ML VIAL INJ IV SCH (09:55)
[2023-01-01] MEDS: ENOXAPARIN SOD 40 MG/0.4 ML SYRINGE SC SCH (10:02)
[2023-01-01 11:07] LABS: Amylase 70 U/L (25-115); Lipase 101 U/L (73-393)
[2023-01-01] MEDS ORDERED: HYDROcodone-ACET 5/325MG TAB PO PRN (12:00)
[2023-01-01 14:28] VITALS: BP 120/79
[2023-01-01 16:56] VITALS: BP 122/81
[2023-01-01] MEDS: SUCRALFATE 1 GM/10 ML ORAL SUSP GT SCH ×2 (17:00→21:39)
[2023-01-01] MEDS: DICYCLOMINE HCL 10 MG CAP PO SCH (21:38)
[2023-01-01] MEDS: PANTOPRAZOLE 40 MG TAB PO SCH (21:38)
[2023-01-01 22:00] VITALS: BP 118/86
[2023-01-02] MEDS: D5W 5% 1,000 ML IV SCH (03:01)
[2023-01-02 05:00] VITALS: BP 105/71
[2023-01-02] MEDS: InsuLIN REG 1unit/0.01ml Soln (100units/ml) SC SCH (06:00)
[2023-01-02] MEDS: SUCRALFATE 1 GM/10 ML ORAL SUSP GT SCH (07:00)
[2023-01-02] MEDS: ACCU-CHEK COMFORT CURVE STRIP VI SCH (07:09)
[2023-01-02 09:00] VITALS: BP 114/74
[2023-01-02] MEDS: ENOXAPARIN SOD 40 MG/0.4 ML SYRINGE SC SCH (10:00)
[2023-01-02] MEDS: PANTOPRAZOLE 40 MG TAB PO SCH (10:00)
[2023-01-02] MEDS: DICYCLOMINE HCL 10 MG CAP PO SCH (10:00)
[2023-01-02] MEDS ORDERED: PANT40T PO (10:07)
[2023-01-02] MEDS ORDERED: SUCR1SUS10 GT (10:07)
== END 2023-01-02 10:50 | disposition left against medical advice (07) | DRG 282 ==
LOC: ER 18:41 → OVERFLOW 22:53 → EAST 12-28 13:30
PROVIDERS: ADMIT Nurse Practitioner Family; ATTEND Internal Medicine
DX: K85.30 Drug induced acute pancreatitis without necrosis or infection (principal); E11.9 Type 2 diabetes mellitus without complications; K85.90 Acute pancreatitis without necrosis or infection, unspecified; K86.1 Other chronic pancreatitis; I10 Essential (primary) hypertension; Z21 Asymptomatic human immunodeficiency virus [HIV] infection status; F11.20 Opioid dependence, uncomplicated; K29.70 Gastritis, unspecified, without bleeding; K20.90 Esophagitis, unspecified without bleeding; E86.0 Dehydration; R32 Unspecified urinary incontinence; Z20.822 Contact with and (suspected) exposure to COVID-19; Z53.29 Procedure and treatment not carried out because of patient's decision for other reasons; Z76.5 Malingerer [conscious simulation]
CPT/HCPCS: 36415; 80053; 80076; 81001; 82150; 82962; 83690; 85025; 87426; C9113; G0378; J2405

== ENCOUNTER 2024-01-16 18:29 | Emergency (ER) | payer MEDICAID ==
[~2024-01-16] VITALS: Ht 180.3 cm; Wt 58.6 kg
[~2024-01-16 18:29] MED LIST changes: +FAMO-12 PO; +PANT40T PO; +SUCR1SUS26 GT
[2024-01-16 18:40] VITALS: BP 112/76; PULSE 106; RESP 18; O2SAT 97
[2024-01-16] MEDS ORDERED: SODIUM CHLORIDE 0.9% 1,000 ML IV ONE (19:15)
[2024-01-16] MEDS ORDERED: PANTOPRAZOLE 40 MG/10 ML VIAL INJ IV ONE (19:15)
[2024-01-16] MEDS ORDERED: METOCLOPRAMIDE HCL 5MG/ml INJ 2ml VIAL IV ONE (19:15)
[2024-01-16] MEDS ORDERED: MORPHINE SULFATE 4 MG/ML SYR/VIAL IV ONE (19:15)
[2024-01-16 19:30] LABS: Basophils # (auto) 0 10 ^3/uL (0-0.2); Basophils % (auto) 0.6 % (0.0-2.0); Eosinophils # (auto) 0 10 ^3/uL (0-0.8); Eosinophils % (auto) 0.4 % (0.0-7.0); Hematocrit 46.3 % (41.0-53.0); Hemoglobin 15.7 g/dL (13.5-17.5); Lymphocytes # (auto) 1.2 10 ^3/uL (0.4-5.4); Lymphocytes % (auto) 16.2 % (10.0-50.0); Mean Corpuscular Hemoglobin 33.7 pg (28.0-32.0); Mean Corpuscular Hgb Conc. 33.9 g/dL (32.0-36.0); Mean Corpuscular Volume 99.3 fL (80.0-100.0); Monocytes # (auto) 0.4 10 ^3/uL (0-1.3); Monocytes % (auto) 4.9 % (0.0-12.0); Neutrophils % (auto) 77.9 % (37.0-80.0); Nucleated Red Blood Cells % 0.1 %; Red Blood Cells 4.67 10^6/uL (4.5-5.90); Red Cell Distribution Width 13.4 % (11.8-14.3); White Blood Cell 7.7 10^3/uL (4.4-10.8)
[2024-01-16 19:40] LABS: Alanine Aminotransferase 12 U/L (7-40); Alkaline Phosphatase 60 U/L (46-116); Anion Gap 4 (5-15); Aspartate Aminotransferase 15 U/L (13-40); BUN/Creatinine Ratio 13.5 (10.0-20.0); Blood Urea Nitrogen 13 mg/dL (9-23); Calcium 10.2 mg/dL (8.7-10.4); Carbon Dioxide 29 mmol/L (20-30); Chloride 105 mmol/L (98-107); Glucose 85 mg/dL (74-106); Lipase 101 U/L (12-53); Potassium 4.4 mmol/L (3.5-5.1); Sodium 138 mmol/L (136-145)
[2024-01-16 19:41] LABS: Bilirubin, Total 0.9 mg/dL (0.2-1.0); Total Protein 7.2 g/dL (5.7-8.2)
[2024-01-16] MEDS ORDERED: SODIUM ZIRCONIUM CYCL 10 GM PAK PO ONE (20:45)
[2024-01-16] MEDS ORDERED: IOHEXOL 350 MG/ML 100ML IJ ONE (20:48)
[2024-01-16] MEDS ORDERED: ONDANSETRON HCL 4 MG/2 ML VIAL IV PRN (21:00)
[2024-01-16] MEDS ORDERED: SODIUM CHLORIDE 0.9% 1,000 ML IV SCH (21:00)
[2024-01-16] MEDS ORDERED: HYDROcodone-ACET 5/325MG TAB PO PRN (21:00)
[2024-01-16] MEDS ORDERED: DOCUSATE SOD 100 MG CAP PO PRN (21:00)
[2024-01-16] MEDS ORDERED: ACETAMINOPHEN 325 MG TAB PO PRN (21:00)
[2024-01-16] MEDS ORDERED: MORPHINE SULFATE INJ 2 MG/ml SYRG IV PRN (21:00)
[2024-01-17] MEDS ORDERED: DOVATO PO SCH (10:00)
[2024-01-17] MEDS ORDERED: PANTOPRAZOLE 40 MG/10 ML VIAL INJ IV SCH (10:00)
== END 2024-01-16 22:36 | disposition left against medical advice (07) ==
LOC: ER 18:29
DX: K85.90 Acute pancreatitis without necrosis or infection, unspecified (principal); E78.5 Hyperlipidemia, unspecified; F17.210 Nicotine dependence, cigarettes, uncomplicated; Z79.899 Other long term (current) drug therapy; Z88.8 Allergy status to other drugs, medicaments and biological substances; Z91.018 Allergy to other foods
CPT/HCPCS: 36415; 80053; 83690; 84484; 85025

== ENCOUNTER 2024-03-24 01:06 | Emergency (ER) | payer MEDICAID ==
[~2024-03-24] VITALS: Ht 180.3 cm; Wt 60.9 kg
[2024-03-24 01:26] VITALS: BP 134/84; PULSE 96; RESP 16; O2SAT 99
[2024-03-24 02:13] LABS: Basophils # (auto) 0 10 ^3/uL (0-0.2); Basophils % (auto) 0.7 % (0.0-2.0); Eosinophils # (auto) 0.1 10 ^3/uL (0-0.8); Hematocrit 47.3 % (41.0-53.0); Hemoglobin 16.1 g/dL (13.5-17.5); Lymphocytes # (auto) 1.8 10 ^3/uL (0.4-5.4); Lymphocytes % (auto) 34.9 % (10.0-50.0); Mean Corpuscular Hemoglobin 34.3 pg (28.0-32.0); Mean Corpuscular Volume 100.8 fL (80.0-100.0); Monocytes # (auto) 0.4 10 ^3/uL (0-1.3); Monocytes % (auto) 7.2 % (0.0-12.0); Neutrophils # (auto) 2.9 10 ^3/uL (1.6-8.6); Neutrophils % (auto) 56.2 % (37.0-80.0); Red Blood Cells 4.69 10^6/uL (4.5-5.90); Red Cell Distribution Width 13.5 % (11.8-14.3); White Blood Cell 5.2 10^3/uL (4.4-10.8)
[2024-03-24 02:26] LABS: Albumin 4.9 g/dL (3.2-4.8); Alkaline Phosphatase 59 U/L (46-116); Anion Gap 4 (5-15); Aspartate Aminotransferase 11 U/L (13-40); BUN/Creatinine Ratio 12.6 (10.0-20.0); Blood Urea Nitrogen 11 mg/dL (9-23); Carbon Dioxide 27 mmol/L (20-30); Chloride 106 mmol/L (98-107); Glucose 103 mg/dL (74-106); Lipase 102 U/L (12-53); Potassium 3.9 mmol/L (3.5-5.1); Sodium 137 mmol/L (136-145)
[2024-03-24 02:27] LABS: Bilirubin, Total 0.8 mg/dL (0.2-1.0); Total Protein 7.7 g/dL (5.7-8.2)
[2024-03-24 02:28] LABS: Alanine Aminotransferase 9 U/L (7-40)
[2024-03-24] MEDS ORDERED: DICY20TA PO (03:25)
[2024-03-24] MEDS ORDERED: ZOFR4T PO (03:25)
== END 2024-03-24 05:53 | disposition home or self-care (01) ==
LOC: ER 01:06
DX: K29.70 Gastritis, unspecified, without bleeding (principal); F17.210 Nicotine dependence, cigarettes, uncomplicated; E78.5 Hyperlipidemia, unspecified; Z91.018 Allergy to other foods; Z79.1 Long term (current) use of non-steroidal anti-inflammatories (NSAID); Z88.8 Allergy status to other drugs, medicaments and biological substances; Z79.899 Other long term (current) drug therapy
CPT/HCPCS: 36415; 74176; 80053; 83690; 85025

== ENCOUNTER 2024-08-23 05:02 | Emergency (ER) | payer MEDICAID ==
[~2024-08-23] VITALS: Ht 167.6 cm; Wt 63.6 kg
[~2024-08-23 05:02] MED LIST changes: +DICY20TA PO; +ZOFR4T PO
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
[2024-08-23] MEDS: ONDANSETRON ODT 4 MG TAB PO ONE (06:55)
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
[2024-08-23 06:57] VITALS: PULSE 89; RESP 20; O2SAT 98
[2024-08-23] MEDS: ACETAMINOPHEN 325 MG TAB PO ONE (06:57)
[2024-08-23] MEDS ORDERED: CYCL-838 PO (07:09)
[2024-08-23] MEDS ORDERED: IBU600T PO (07:09)
[2024-08-23 07:21] VITALS: BP 117/64; PULSE 100; RESP 15; O2SAT 98
[2024-08-23] MEDS: HYDROcodone-ACET 5/325MG TAB PO ONE (07:43)
== END 2024-08-23 07:45 | disposition home or self-care (01) ==
LOC: ER 05:02 → EDBD 05:02 → ER 07:45
DX: R51.9 Headache, unspecified (principal); F17.210 Nicotine dependence, cigarettes, uncomplicated; Z79.624 Long term (current) use of inhibitors of nucleotide synthesis; Z88.6 Allergy status to analgesic agent; Z91.018 Allergy to other foods; Z79.899 Other long term (current) drug therapy; Y04.2XXA Assault by strike against or bumped into by another person, initial encounter; Y93.89 Activity, other specified; Y92.524 Gas station as the place of occurrence of the external cause; Y99.8 Other external cause status
CPT/HCPCS: 70450; 71046; 72125; 99284; Q0162